=== PATIENT | female | born 1965 | race American Indian/Alaskan Native ===

== ENCOUNTER 2018-04-22 20:43 | Emergency (ER) | payer BC ==
[2018-04-22 20:57] VITALS: BP 154/104
[2018-04-22] MEDS ORDERED: TYLENOL ONE (22:08)
[2018-04-22] MEDS ORDERED: TYLENOL PO ONE (22:11)
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
== END 2018-04-23 00:48 | disposition home or self-care (01) ==
LOC: ED 20:43
DX: M25.551 Pain in right hip (principal); M25.561 Pain in right knee
CPT/HCPCS: 72170; 99283

== ENCOUNTER 2019-05-13 21:08 | Emergency (ER) | payer BC, OTHER ==
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
[2019-05-14] MEDS ORDERED: TORADOL IM ONE (01:58)
[2019-05-14 02:06] VITALS: BP 176/103
== END 2019-05-14 02:07 | disposition home or self-care (01) ==
LOC: ED 21:08
DX: S16.1XXA Strain of muscle, fascia and tendon at neck level, initial encounter (principal); I10 Essential (primary) hypertension; M19.90 Unspecified osteoarthritis, unspecified site; Z90.89 Acquired absence of other organs; Z90.710 Acquired absence of both cervix and uterus; E66.01 Morbid (severe) obesity due to excess calories; V49.49XA Driver injured in collision with other motor vehicles in traffic accident, initial encounter; Y93.9 Activity, unspecified; Y92.410 Unspecified street and highway as the place of occurrence of the external cause; Y99.8 Other external cause status
CPT/HCPCS: 72040; 96372; 99283; J1885

== ENCOUNTER 2019-06-16 19:51 | Emergency (ER) | payer BC, OTHER ==
--- NOTE | 2019-06-16 20:29 | Emergency Department Report ---
Blank Doc - Documentation Documentation: This is a 54-year-old female that present with left elbow pain. This initial assessment/diagnostic orders/clinical plan/treatment(s) is/are subject to change based on patient's health status, clinical progression and re- assessment by fellow clinical providers in the ED. Further treatment and workup at subsequent clinical providers discretion. Patient/guardians urged not to elope from the ED as their condition may be serious if not clinically assessed and managed. Initial orders include: 1- Patient sent to [facility] for further evaluation and treatment 2- xray
[2019-06-16 21:25] VITALS: BP 158/101
--- NOTE | 2019-06-16 21:47 | XRay Report ---
CLINICAL DATA: elbow pain TECHNICAL DATA: 4 views of the elbow were obtained, AP, lateral, obliques FINDINGS: There is no acute fracture or dislocation. There is visualization of the anterior humeral fat pad. Th is is no consistent with a joint effusion. The radial head articulates normally with the capitellum a nd the ulna articulates normally with the trochlea. No obvious fractures identified. IMPRESSION: 1. There is no convincing acute fracture detected at this time. Signer Name: Az Merchant MD Signed: 06/16/2019 9:43 PM Workstation Name: [id number]
--- NOTE | 2019-06-16 21:56 | Emergency Department Report ---
Upper Extremity - HPI Chief Complaint: Extremity Injury, Upper Stated Complaint: LEFT ELBOW PAIN Time Seen by Provider: 06/16/19 20:28 Upper Extremity: Left Elbow Occurred When: Today Mechanism: Other Severity: moderate Symptoms: Yes Pain with Movement, No Deformity, No Limited Range of Movement, No Numbness, No Weakness, No Swelling, No Bruising/Ecchymosis, No Laceration or Abrasion ED Review of Systems ROS: Stated complaint: LEFT ELBOW PAIN Other details as noted in HPI Comment: All other systems reviewed and negative Constitutional: denies: chills, fever Respiratory: denies: cough, shortness of breath Cardiovascular: denies: chest pain ED Past Medical Hx - Past Medical History Previous Medical History?: Yes Hx Hypertension: Yes Hx Arthritis: Yes Additional medical history: morbid obesity - Surgical History Past Surgical History?: Yes Additional Surgical History: Hysterectomy, Tosillectomy, C section x 1 - Social History Smoking Status: Former Smoker - Medications Home Medications: Home Medications Medication Instructions Recorded Confirmed Last Taken Type Cyclobenzaprine [Flexeril 10mg] 10 mg PO Q12H PRN #14 tablet 11/05/18 Unknown Rx Ibuprofen [Motrin] 600 mg PO Q8H PRN #12 tablet 11/05/18 Unknown Rx Cyclobenzaprine [Flexeril] 10 mg PO TID PRN #30 tablet 05/14/19 Unknown Rx Menthol/Camphor [[place] 1 applic TP QID PRN #1 tube 05/14/19 Unknown Rx Ointment] Naproxen [Naprosyn TAB] 500 mg PO BID PRN #30 tablet 05/14/19 Unknown Rx Upper Extremity Exam - Exam General: Vital signs noted. No distress. Alert and acting appropriately. Head and Torso: No HEENT Abnormality, No Neck Tenderness, No Chest/Lungs Abnormality, No Abdominal Tenderness, No Back Tenderness Shoulder Exam: No Shoulder Tenderness, No Clavicle Tenderness, No Normal Range of Motion in Shoulder, No Shoulder Deformity, No AC Joint Tenderness Arm Exam: No Arm/Humerus Tenderness, No Arm Deformity Elbow: Yes Elbow Tenderness, Yes Normal Range of Motion in Elbow, No Elbow Deformity Forearm: No Forearm Tenderness, No Forearm Deformity, No Pain with Pronation, No Pain with Supination ED Course Vital Signs 06/16/19 06/16/19 19:55 21:24 Temperature 97.8 F 97.8 F Pulse Rate 79 83 Respiratory 18 16 Rate Blood Pressure 184/99 Blood Pressure 158/101 [Right] O2 Sat by Pulse 97 98 Oximetry ED Medical Decision Making - Radiology Data Radiology results: report reviewed Left elbow x-ray is unremarkable. Critical care attestation.: If time is entered above; I have spent that time in minutes in the direct care of this critically ill patient, excluding procedure time. ED Disposition Clinical Impression: Olecranon bursitis Disposition: DC- TO HOME OR SELFCARE Is pt being admited?: No Condition: Stable Instructions: Elbow Bursitis (ED) Referrals: [facility] [Provider Group] - 3-5 Days Forms: Work/School Release Form(ED)
== END 2019-06-16 22:23 | disposition home or self-care (01) ==
LOC: ED 19:51
DX: M70.22 Olecranon bursitis, left elbow (principal); I10 Essential (primary) hypertension; M19.90 Unspecified osteoarthritis, unspecified site; E66.01 Morbid (severe) obesity due to excess calories; Z68.42 Body mass index [BMI] 45.0-49.9, adult; Z90.710 Acquired absence of both cervix and uterus; Z90.89 Acquired absence of other organs; Z87.891 Personal history of nicotine dependence; Z79.899 Other long term (current) drug therapy
CPT/HCPCS: 99283

== ENCOUNTER 2019-07-22 20:04 | Emergency (ER) | payer BC ==
--- NOTE | 2019-07-22 20:20 | Event Note ---
ED Screening Note Date of service: 07/22/19 Time: 20:10 ED Screening Note: 54 yo presents to ED cc of knee pain This initial assessment/diagnostic orders/clinical plan/treatment(s) is/are subject to change based on patients health status, clinical progression and re- assessment by fellow clinical providers in the ED. Further treatment and workup at subsequent clinical providers discretion. Patient/guardian urged not to elope from the ED as their condition may be serious if not clinically assessed and managed. Initial orders include:
--- NOTE | 2019-07-22 21:30 | XRay Report ---
LEFT KNEE 3 VIEWS INDICATION / CLINICAL INFORMATION: Left knee pain. COMPARISON: None available. FINDINGS: BONES / JOINT(S): There are moderate tricompartmental degenerative changes, most prominent involving the medial tibiofemoral and patellofemoral joint spaces. There is no evidence of fracture, dislocatio n or destructive lesion. No significant joint effusion is seen. SOFT TISSUES: No significant abnormality. ADDITIONAL FINDINGS: None. IMPRESSION: Moderate osteoarthritis without acute abnormality. Signer Name: Cruzito Tyler MD Signed: 07/22/2019 9:26 PM Workstation Name: [id number]
[2019-07-22] MEDS ORDERED: IBUPROFEN PO ONE (22:13)
--- NOTE | 2019-07-22 22:53 | Emergency Department Report ---
ED Back Pain/Injury HPI - General Chief Complaint: Extremity Injury, Lower Stated Complaint: LEFT KNEE PAIN/SWOLLEN Time Seen by Provider: 07/22/19 20:10 Source: patient Limitations: No Limitations - History of Present Illness Initial Comments: 54 YO WITH A/C L KNEE PAIN. NO TRAUMA. MORBIDLY OBESE. - Related Data Previous Rx's Medication Instructions Recorded Last Taken Type Cyclobenzaprine [Flexeril 10mg] 10 mg PO Q12H PRN #14 tablet 11/05/18 Unknown Rx Ibuprofen [Motrin] 600 mg PO Q8H PRN #12 tablet 11/05/18 Unknown Rx Cyclobenzaprine [Flexeril] 10 mg PO TID PRN #30 tablet 05/14/19 Unknown Rx Menthol/Camphor [[place] 1 applic TP QID PRN #1 tube 05/14/19 Unknown Rx Ointment] Naproxen [Naprosyn TAB] 500 mg PO BID PRN #30 tablet 05/14/19 Unknown Rx Naproxen [Naprosyn] 500 mg PO BID #14 tablet 06/16/19 Unknown Rx Allergies Allergy/AdvReac Type Severity Reaction Status Date / Time No Known Allergies Allergy Verified 04/22/18 23:18 ED Review of Systems ROS: Stated complaint: LEFT KNEE PAIN/SWOLLEN Other details as noted in HPI Comment: All other systems reviewed and negative ED Past Medical Hx - Past Medical History morbid obesity- HYPOTHYROIDISM Family history: hypertension ED Back Pain Physical Exam - Exam General: Vital signs noted. No distress. Alert and acting appropriately. Back/Abdomen: No Abdominal Tenderness, No Perithoracic Tenderness, No Perilumbar Tenderness, No Sacroiliac Tenderness, No Flank Tenderness, No Straight Leg Raise Pain Neuro: Yes Normal Sensation, Yes Normal DTR's, Yes Normal Gait, No Motor Weakness ED Course Vital Signs 07/22/19 07/22/19 20:13 22:19 Temperature 98.3 F Pulse Rate 74 Respiratory 18 16 Rate Blood Pressure 137/86 O2 Sat by Pulse 96 Oximetry Ed Back Pain Tests - Tests Tests: Normal X Rays ED Medical Decision Making - Radiology Data Radiology results: report reviewed, image reviewed - Medical Decision Making XRAY NEG A/C PAIN NO HOME MEDS AMBULATING WO DIFFICULTY N/V INTACT DC HOME WITH DC PLAN OF CARE Vital Signs 07/22/19 07/22/19 20:13 22:19 Temperature 98.3 F Pulse Rate 74 Respiratory 18 16 Rate Blood Pressure 137/86 O2 Sat by Pulse 96 Oximetry - Differential Diagnosis RO FX Critical care attestation.: If time is entered above; I have spent that time in minutes in the direct care of this critically ill patient, excluding procedure time. ED Disposition Clinical Impression: Knee pain Disposition: DC-01 TO HOME OR SELFCARE Is pt being admited?: No Does the pt Need Aspirin: No Condition: Stable Instructions: Arthralgia (ED) Referrals: GITA GIANG MD [Staff Physician] - 3-5 Days [facility] [Outside] - 3-5 Days [facility] [Outside] - 3-5 Days Forms: Work/School Release Form(ED) Time of Disposition: 22:53
[2019-07-22 23:12] VITALS: BP 134/81
== END 2019-07-22 23:11 | disposition home or self-care (01) ==
LOC: ED 20:04
DX: M25.562 Pain in left knee (principal); E03.9 Hypothyroidism, unspecified; E66.01 Morbid (severe) obesity due to excess calories; Z68.42 Body mass index [BMI] 45.0-49.9, adult; Z79.899 Other long term (current) drug therapy

== ENCOUNTER 2019-12-29 22:45 | Emergency (ER) | payer BC, OTHER ==
--- NOTE | 2019-12-30 02:40 | XRay Report ---
CHEST 2 VIEWS INDICATION: cough. COMPARISON: None FINDINGS: Support devices: None. Heart: Within normal limits. Lungs/pleura: No acute air space or interstitial disease. No pneumothorax. Additional findings: None. IMPRESSION: 1. No acute findings. Signer Name: Og Strickland MD Signed: 12/30/2019 2:35 AM Workstation Name: [id number]
--- NOTE | 2019-12-30 03:11 | Emergency Department Report ---
- General Chief Complaint: Upper Respiratory Infection Stated Complaint: FLU SYM Time Seen by Provider: 12/30/19 02:08 Source: patient Mode of arrival: Ambulatory Limitations: No Limitations - History of Present Illness Initial Comments: 54-year-old -[place] female with history of asthma presents with complaints of cough, runny nose, sneezing, and sore throat x 1 week. She reports a tactile fever and chills. She denies any smoking, chest pain, shortness of breath, nausea/vomiting/diarrhea, or body aches. She rates her throat pain as a 3/10 in severity and describes it as scratchy. Patient states TheraFlu is not helping with her symptoms. She also reports 1 episode of dizziness that occurred after she awoke from a nap and lasted a few seconds. She denies any syncope, headache, facial pain or pressure, vision changes, or numbness/tingling/weakness. Blood pressure noted to be significantly elevated at 183/103, patient denies any previous history of hypertension MD Complaint: fever, cough, sore throat, rhinorrhea, nasal congestion - Related Data Previous Rx's Medication Instructions Recorded Last Taken Type Cyclobenzaprine [Flexeril 10mg] 10 mg PO Q12H PRN #14 tablet 11/05/18 Unknown Rx Ibuprofen [Motrin] 600 mg PO Q8H PRN #12 tablet 11/05/18 Unknown Rx Cyclobenzaprine [Flexeril] 10 mg PO TID PRN #30 tablet 05/14/19 Unknown Rx Menthol/Camphor [[place] 1 applic TP QID PRN #1 tube 05/14/19 Unknown Rx Ointment] Naproxen [Naprosyn TAB] 500 mg PO BID PRN #30 tablet 05/14/19 Unknown Rx Naproxen [Naprosyn] 500 mg PO BID #14 tablet 06/16/19 Unknown Rx Benzonatate 200 mg PO TID PRN #30 capsule 12/30/19 Unknown Rx Fluticasone [Flonase] 1 spray NS BID PRN #1 bottle 12/30/19 Unknown Rx Levocetirizine Dihydrochloride 5 mg PO QHS #15 tablet 12/30/19 Unknown Rx [Xyzal] Allergies Allergy/AdvReac Type Severity Reaction Status Date / Time No Known Allergies Allergy Verified 04/22/18 23:18 ED Review of Systems ROS: Stated complaint: FLU SYM Other details as noted in HPI Constitutional: chills, fever. denies: malaise, weakness Eyes: denies: vision change ENT: throat pain. denies: ear pain, dental pain Respiratory: cough. denies: shortness of breath Cardiovascular: denies: chest pain, syncope Gastrointestinal: denies: abdominal pain, nausea, vomiting, diarrhea Skin: denies: rash, lesions Neurological: denies: headache, numbness, paresthesias, confusion, abnormal gait Hematological/Lymphatic: denies: swollen glands ED Past Medical Hx - Past Medical History Previous Medical History?: Yes Hx Hypertension: Yes Hx Arthritis: Yes Additional medical history: morbid obesity- HYPOTHYROIDISM - Surgical History Past Surgical History?: Yes Additional Surgical History: Hysterectomy, Tosillectomy, C section x 1 - Social History Smoking Status: Never Smoker Substance Use Type: Alcohol - Medications Home Medications: Home Medications Medication Instructions Recorded Confirmed Last Taken Type Cyclobenzaprine [Flexeril 10mg] 10 mg PO Q12H PRN #14 tablet 11/05/18 Unknown Rx Ibuprofen [Motrin] 600 mg PO Q8H PRN #12 tablet 11/05/18 Unknown Rx Cyclobenzaprine [Flexeril] 10 mg PO TID PRN #30 tablet 05/14/19 Unknown Rx Menthol/Camphor [[place] 1 applic TP QID PRN #1 tube 05/14/19 Unknown Rx Ointment] Naproxen [Naprosyn TAB] 500 mg PO BID PRN #30 tablet 05/14/19 Unknown Rx Naproxen [Naprosyn] 500 mg PO BID #14 tablet 06/16/19 Unknown Rx Benzonatate 200 mg PO TID PRN #30 capsule 12/30/19 Unknown Rx Fluticasone [Flonase] 1 spray NS BID PRN #1 bottle 12/30/19 Unknown Rx Levocetirizine Dihydrochloride 5 mg PO QHS #15 tablet 12/30/19 Unknown Rx [Xyzal] ED Physical Exam - General Limitations: No Limitations General appearance: alert, in no apparent distress, obese - Head Head exam: Present: atraumatic, normocephalic - Eye Eye exam: Present: normal appearance. Absent: scleral icterus, conjunctival injection - ENT ENT exam: Present: normal orophraynx, mucous membranes moist, other (swollen, bluish turbinates noted on nasal exam) - Neck Neck exam: Present: normal inspection, full ROM. Absent: tenderness, lymphadenopathy - Respiratory Respiratory exam: Present: normal lung sounds bilaterally. Absent: respiratory distress, wheezes, rales, rhonchi - Cardiovascular Cardiovascular Exam: Present: regular rate, normal rhythm. Absent: systolic murmur, diastolic murmur, rubs, gallop - Extremities Exam Extremities exam: Present: normal inspection - Back Exam Back exam: Present: normal inspection - Neurological Exam Neurological exam: Present: alert, oriented X3 - Psychiatric Psychiatric exam: Present: normal affect, normal mood - Skin Skin exam: Present: warm, dry, intact, normal color. Absent: rash ED Course Vital Signs 12/29/19 12/29/19 22:51 23:33 Temperature 98.3 F Pulse Rate 81 Respiratory 18 Rate Blood Pressure 183/103 O2 Sat by Pulse 97 Oximetry ED Medical Decision Making - Medical Decision Making 54-year-old -[place] female with history of asthma presents with complaints of cough, runny nose, sneezing, and sore throat x 1 week. Chest x- ray is negative for acute findings. Physical exam is consistent with allergic rhinosinusitis. Chest x-ray is negative for acute findings. Heart rate and temperature are normal. Patient is nontoxic-appearing in stable for discharge home. Recommend follow-up with primary care provider within 2 days for reevaluation of blood pressure. Discussed very strict return precautions in great detail with patient who verbalizes understanding. Critical care attestation.: If time is entered above; I have spent that time in minutes in the direct care of this critically ill patient, excluding procedure time. ED Disposition Clinical Impression: Allergic rhinosinusitis Qualifiers: Allergic rhinitis trigger: other Allergic rhinitis seasonality: seasonal Qualified Code(s): J30.89 - Other allergic rhinitis Disposition: - TO HOME OR SELFCARE Is pt being admited?: No Condition: Stable Instructions: Allergies (ED) Prescriptions: Levocetirizine Dihydrochloride [Xyzal] 5 mg PO QHS #15 tablet Benzonatate 200 mg PO TID PRN #30 capsule PRN Reason: Cough Fluticasone [Flonase] 1 spray NS BID PRN #1 bottle PRN Reason: Congestion Referrals: JING SCHWARTZ MD [Staff Physician] - 3-5 Days Forms: Work/School Release Form(ED)
[2019-12-30 03:37] VITALS: BP 147/58
== END 2019-12-30 03:36 | disposition home or self-care (01) ==
LOC: ED 22:45
DX: J30.9 Allergic rhinitis, unspecified (principal); I10 Essential (primary) hypertension; M19.90 Unspecified osteoarthritis, unspecified site; E03.9 Hypothyroidism, unspecified; Z90.710 Acquired absence of both cervix and uterus; Z98.890 Other specified postprocedural states; Z79.1 Long term (current) use of non-steroidal anti-inflammatories (NSAID); Z79.899 Other long term (current) drug therapy
CPT/HCPCS: 71046

== ENCOUNTER 2020-07-19 02:09 | Emergency (ER) | payer BC ==
[2020-07-19 02:44] VITALS: BP 173/92
--- NOTE | 2020-07-19 05:08 | Emergency Department Report ---
ED Extremity Problem HPI - General Chief complaint: Extremity Injury, Lower Stated complaint: LF KNEE PAIN Time Seen by Provider: 07/19/20 05:03 Source: patient Mode of arrival: Ambulatory Limitations: No Limitations - History of Present Illness Initial comments: 55-year-old morbid obese -[place] female presents to the emergency room complaining of chronic right knee pain. Patient states that she has acute pain that started since Sunday. Patient denies any recent injury. Patient reports that she is waiting for an appointment next month to have a gel injection to her knee. Patient reports has been taking Advil without much relief. Patient denies any known drug allergies. Past medical history of arthritis hypertension morbid obesity hypothyroidism. MD Complaint: extremity pain, extremity swelling Onset/Timin -: days(s) Location: left, knee History of Same: Yes -: Yes arthralgia Severity scale (0 -10): 9 Quality: stabbing, sharp Consistency: intermittent Improves with: rest Worsens with: weight bearing, walking Associated Symptoms: denies other symptoms - Related Data Previous Rx's Medication Instructions Recorded Last Taken Type Cyclobenzaprine [Flexeril 10mg] 10 mg PO Q12H PRN #14 tablet 11/05/18 Unknown Rx Ibuprofen [Motrin] 600 mg PO Q8H PRN #12 tablet 11/05/18 Unknown Rx Cyclobenzaprine [Flexeril] 10 mg PO TID PRN #30 tablet 05/14/19 Unknown Rx Menthol/Camphor [[place] 1 applic TP QID PRN #1 tube 05/14/19 Unknown Rx Ointment] Naproxen [Naprosyn] 500 mg PO BID #14 tablet 06/16/19 Unknown Rx Benzonatate 200 mg PO TID PRN #30 capsule 12/30/19 Unknown Rx Fluticasone [Flonase] 1 spray NS BID PRN #1 bottle 12/30/19 Unknown Rx Levocetirizine Dihydrochloride 5 mg PO QHS #15 tablet 12/30/19 Unknown Rx [Xyzal] Naproxen [Naprosyn TAB] 500 mg PO BID PRN #30 tablet 05/03/20 Unknown Rx predniSONE [Deltasone] 60 mg PO QDAY #15 tab 05/03/20 Unknown Rx tiZANidine [Zanaflex 4mg TAB] 4 mg PO Q8H PRN #21 tablet 05/03/20 Unknown Rx Lidocaine [Lidoderm] 1 each TP Q12H #1 box 07/19/20 Unknown Rx Meloxicam [Mobic] 7.5 mg PO QDAY #30 tablet 07/19/20 Unknown Rx traMADoL [Ultram 50 MG tab] 50 mg PO Q6HR PRN #12 tablet 07/19/20 Unknown Rx Allergies Allergy/AdvReac Type Severity Reaction Status Date / Time No Known Allergies Allergy Verified 04/22/18 23:18 ED Review of Systems ROS: Stated complaint: LF KNEE PAIN Other details as noted in HPI Comment: All other systems reviewed and negative ED Past Medical Hx - Past Medical History Previous Medical History?: Yes Hx Hypertension: Yes Hx Arthritis: Yes Additional medical history: morbid obesity- HYPOTHYROIDISM. Chronic Knee Pain - Surgical History Past Surgical History?: Yes Additional Surgical History: Hysterectomy, Tosillectomy, C section x 1. thyroid - Social History Smoking Status: Never Smoker Substance Use Type: None - Medications Home Medications: Home Medications Medication Instructions Recorded Confirmed Last Taken Type Cyclobenzaprine [Flexeril 10mg] 10 mg PO Q12H PRN #14 tablet 11/05/18 Unknown Rx Ibuprofen [Motrin] 600 mg PO Q8H PRN #12 tablet 11/05/18 Unknown Rx Cyclobenzaprine [Flexeril] 10 mg PO TID PRN #30 tablet 05/14/19 Unknown Rx Menthol/Camphor [[place] 1 applic TP QID PRN #1 tube 05/14/19 Unknown Rx Ointment] Naproxen [Naprosyn] 500 mg PO BID #14 tablet 06/16/19 Unknown Rx Benzonatate 200 mg PO TID PRN #30 capsule 12/30/19 Unknown Rx Fluticasone [Flonase] 1 spray NS BID PRN #1 bottle 12/30/19 Unknown Rx Levocetirizine Dihydrochloride 5 mg PO QHS #15 tablet 12/30/19 Unknown Rx [Xyzal] Naproxen [Naprosyn TAB] 500 mg PO BID PRN #30 tablet 05/03/20 Unknown Rx predniSONE [Deltasone] 60 mg PO QDAY #15 tab 05/03/20 Unknown Rx tiZANidine [Zanaflex 4mg TAB] 4 mg PO Q8H PRN #21 tablet 05/03/20 Unknown Rx Lidocaine [Lidoderm] 1 each TP Q12H #1 box 07/19/20 Unknown Rx Meloxicam [Mobic] 7.5 mg PO QDAY #30 tablet 07/19/20 Unknown Rx traMADoL [Ultram 50 MG tab] 50 mg PO Q6HR PRN #12 tablet 07/19/20 Unknown Rx ED Physical Exam - General Limitations: No Limitations General appearance: alert, obese - Head Head exam: Present: atraumatic, normocephalic - Eye Eye exam: Present: normal appearance - ENT ENT exam: Present: mucous membranes moist - Expanded Lower Extremity Exam Left Knee exam: Present: full ROM, tenderness, swelling, crepidus. Absent: abrasion, laceration, ecchymosis, deformity Lower Leg exam: Present: normal inspection, full ROM. Absent: tenderness, swell ing - Neurological Exam Neurological exam: Present: alert, oriented X3 - Psychiatric Psychiatric exam: Present: normal affect, normal mood - Skin Skin exam: Present: warm, dry, intact, normal color. Absent: rash ED Course Vital Signs 07/19/20 02:32 Temperature 98.6 F Pulse Rate 79 Respiratory 18 Rate Blood Pressure 173/92 O2 Sat by Pulse 95 Oximetry ED Medical Decision Making - Medical Decision Making 55-year-old morbid obese -[place] female presents to the emergency room complaining of chronic right knee pain. Patient states that she has acute pain that started since Sunday. Patient denies any recent injury. Patient reports that she is waiting for an appointment next month to have a gel injection to her knee. Patient reports has been taking Advil without much relief. Patient denies any known drug allergies. Past medical history of arthritis hypertension morbid obesity hypothyroidism. Discussed with patient I will refill tramadol and place her on Lidoderm patches. Instructed patient she needs to follow-up with her orthopedic provider for further evaluation and treatment. Critical care attestation.: If time is entered above; I have spent that time in minutes in the direct care of this critically ill patient, excluding procedure time. ED Disposition Clinical Impression: Knee pain, left, Arthritis of both knees Disposition: TO HOME OR SELFCARE Is pt being admited?: No Does the pt Need Aspirin: No Condition: Stable Instructions: Arthralgia (ED) Additional Instructions: Take pain medication as prescribed. Is sure to use the Lidoderm patches for 12 hours and then off for 12 hours. I recommend a neoprene knee sleeve as this will help with support. Follow-up with your orthopedic provider. Do not operate heavy machinery while taking tramadol. Prescriptions: Lidocaine [Lidoderm] 1 each TP Q12H #1 box Meloxicam [Mobic] 7.5 mg PO QDAY #30 tablet traMADoL [Ultram 50 MG tab] 50 mg PO Q6HR PRN #12 tablet PRN Reason: Pain Referrals: PRIMARY CARE,MD [Primary Care Provider] - 3-5 Days Your, orthopedic provider [Other] - 3-5 Days Forms: Work/School Release Form(ED)
== END 2020-07-19 05:33 | disposition home or self-care (01) ==
LOC: ED 02:09
DX: M13.862 Other specified arthritis, left knee (principal); M13.861 Other specified arthritis, right knee; I10 Essential (primary) hypertension; Z79.899 Other long term (current) drug therapy; G89.29 Other chronic pain; Z90.710 Acquired absence of both cervix and uterus; Z90.89 Acquired absence of other organs; E66.01 Morbid (severe) obesity due to excess calories
CPT/HCPCS: 99282

== ENCOUNTER 2020-09-29 23:48 | Emergency (ER) | payer BC ==
[2020-09-30 00:04] VITALS: BP 161/96
[2020-09-30] MEDS ORDERED: oxyCODONE /ACETAMINOPHEN 5-325MG TAB PO ONE (01:16)
--- NOTE | 2020-09-30 01:17 | XRay Report ---
Left knee 2 views INDICATION: Left knee pain. IMPRESSION: Severe tricompartmental degenerative changes of the left knee. Signer Name: Tomi Guzman MD Signed: 09/30/2020 1:13 AM Workstation Name: [id number]
--- NOTE | 2020-09-30 01:21 | Emergency Department Report ---
ED General Adult HPI - General Chief complaint: Extremity Injury, Lower Stated complaint: LEFT KNEE PAIN Time Seen by Provider: 09/30/20 01:16 Source: patient Mode of arrival: Ambulatory Limitations: No Limitations - History of Present Illness Initial comments: 55-year-old female presenting with chief complaint of left knee pain, this is a chronic and recurrent issue she is recently completed injections but now it hurts again. She states that it began about 4 days ago gradually and has gotten worse, she is able to ambulate though it does cause the pain to worsen it is better when she is at rest. No fevers or other associated symptoms. - Related Data Previous Rx's Medication Instructions Recorded Last Taken Type Cyclobenzaprine [Flexeril 10mg] 10 mg PO Q12H PRN #14 tablet 11/05/18 Unknown Rx Ibuprofen [Motrin] 600 mg PO Q8H PRN #12 tablet 11/05/18 Unknown Rx Cyclobenzaprine [Flexeril] 10 mg PO TID PRN #30 tablet 05/14/19 Unknown Rx Menthol/Camphor [[place] 1 applic TP QID PRN #1 tube 05/14/19 Unknown Rx Ointment] Benzonatate 200 mg PO TID PRN #30 capsule 12/30/19 Unknown Rx Fluticasone [Flonase] 1 spray NS BID PRN #1 bottle 12/30/19 Unknown Rx Levocetirizine Dihydrochloride 5 mg PO QHS #15 tablet 12/30/19 Unknown Rx [Xyzal] Naproxen [Naprosyn TAB] 500 mg PO BID PRN #30 tablet 05/03/20 Unknown Rx tiZANidine [Zanaflex 4mg TAB] 4 mg PO Q8H PRN #21 tablet 05/03/20 Unknown Rx Lidocaine [Lidoderm] 1 each TP Q12H #1 box 07/19/20 Unknown Rx Meloxicam [Mobic] 7.5 mg PO QDAY #30 tablet 07/19/20 Unknown Rx traMADoL [Ultram 50 MG tab] 50 mg PO Q6HR PRN #12 tablet 07/19/20 Unknown Rx Naproxen [Naprosyn TAB] 500 mg PO BID #20 tablet 09/30/20 Unknown Rx predniSONE [Deltasone] 40 mg PO QDAY #10 tab 09/30/20 Unknown Rx Allergies Allergy/AdvReac Type Severity Reaction Status Date / Time No Known Allergies Allergy Verified 04/22/18 23:18 ED Review of Systems ROS: Stated complaint: LEFT KNEE PAIN Other details as noted in HPI Comment: All other systems reviewed and negative Musculoskeletal: as per HPI ED Past Medical Hx - Past Medical History Hx Hypertension: Yes Hx Arthritis: Yes Additional medical history: morbid obesity- HYPOTHYROIDISM. Chronic Knee Pain - Surgical History Additional Surgical History: Hysterectomy, Tosillectomy, C section x 1. thyroid - Social History Smoking Status: Never Smoker Substance Use Type: None - Medications Home Medications: Home Medications Medication Instructions Recorded Confirmed Last Taken Type Cyclobenzaprine [Flexeril 10mg] 10 mg PO Q12H PRN #14 tablet 11/05/18 Unknown Rx Ibuprofen [Motrin] 600 mg PO Q8H PRN #12 tablet 11/05/18 Unknown Rx Cyclobenzaprine [Flexeril] 10 mg PO TID PRN #30 tablet 05/14/19 Unknown Rx Menthol/Camphor [[place] 1 applic TP QID PRN #1 tube 05/14/19 Unknown Rx Ointment] Benzonatate 200 mg PO TID PRN #30 capsule 12/30/19 Unknown Rx Fluticasone [Flonase] 1 spray NS BID PRN #1 bottle 12/30/19 Unknown Rx Levocetirizine Dihydrochloride 5 mg PO QHS #15 tablet 12/30/19 Unknown Rx [Xyzal] Naproxen [Naprosyn TAB] 500 mg PO BID PRN #30 tablet 05/03/20 Unknown Rx tiZANidine [Zanaflex 4mg TAB] 4 mg PO Q8H PRN #21 tablet 05/03/20 Unknown Rx Lidocaine [Lidoderm] 1 each TP Q12H #1 box 07/19/20 Unknown Rx Meloxicam [Mobic] 7.5 mg PO QDAY #30 tablet 07/19/20 Unknown Rx traMADoL [Ultram 50 MG tab] 50 mg PO Q6HR PRN #12 tablet 07/19/20 Unknown Rx Naproxen [Naprosyn TAB] 500 mg PO BID #20 tablet 09/30/20 Unknown Rx predniSONE [Deltasone] 40 mg PO QDAY #10 tab 09/30/20 Unknown Rx ED Physical Exam - General Limitations: No Limitations General appearance: alert, in no apparent distress - Head Head exam: Present: atraumatic, normocephalic - Eye Eye exam: Present: normal appearance, PERRL - ENT ENT exam: Present: normal exam, normal orophraynx - Neck Neck exam: Present: normal inspection, full ROM - Extremities Exam Extremities exam: Present: other (There is a mild swelling to the left knee with some painful range of motion, remainder of lower extremity is normal including a normal pedal pulse) - Neurological Exam Neurological exam: Present: alert, oriented X3 - Psychiatric Psychiatric exam: Present: normal affect, normal mood - Skin Skin exam: Present: warm, dry, intact ED Course Vital Signs 09/30/20 00:00 Temperature 97.9 F Pulse Rate 94 H Respiratory 20 Rate Blood Pressure 161/96 O2 Sat by Pulse 98 Oximetry ED Medical Decision Making - Radiology Data Radiology results: image reviewed interpreted by me: Degenerative changes - Medical Decision Making Patient presenting with acute on chronic knee pain. Same as she has been here for multiple times per patient. Requesting a work note. We will give Percocet for pain here and discharged on NSAID and prednisone for a few days. Follow-up Ortho. - Differential Diagnosis Osteoarthritis, sprain, unlikely fracture Critical care attestation.: If time is entered above; I have spent that time in minutes in the direct care of this critically ill patient, excluding procedure time. ED Disposition Clinical Impression: Chronic knee pain Qualifiers: Laterality: left Qualified Code(s): M25.562 - Pain in left knee; G89.29 - Other chronic pain Disposition: - TO HOME OR SELFCARE Is pt being admited?: No Condition: Good Instructions: Acute Knee Pain, Adult Prescriptions: predniSONE [Deltasone] 40 mg PO QDAY #10 tab Naproxen [Naprosyn TAB] 500 mg PO BID #20 tablet Referrals: GITA GIANG MD [Staff Physician] - 3-5 Days Time of Disposition: 01:
== END 2020-09-30 01:45 | disposition home or self-care (01) ==
LOC: ED 23:48
DX: G89.29 Other chronic pain (principal); M25.562 Pain in left knee; I10 Essential (primary) hypertension; M19.91 Primary osteoarthritis, unspecified site; Z90.710 Acquired absence of both cervix and uterus; Z90.89 Acquired absence of other organs; Z98.890 Other specified postprocedural states; Z79.1 Long term (current) use of non-steroidal anti-inflammatories (NSAID); Z79.899 Other long term (current) drug therapy

== ENCOUNTER 2020-10-11 23:46 | Emergency (ER) | payer BC ==
[2020-10-12 00:16] VITALS: BP 147/89
--- NOTE | 2020-10-12 08:53 | Emergency Department Report ---
ED Lower Extremity HPI - General Chief Complaint: Extremity Problem,Nontraumatic Stated Complaint: LEFT KNEE PAIN Time Seen by Provider: 10/12/20 08:43 Source: patient Mode of arrival: Ambulatory Limitations: Physical Limitation - History of Present Illness Initial Comments: This very pleasant 55-year-old female presents the emergency department chief c omplaint of left knee pain. Patient reports she was walking down a step and missed a step landed approximately 2 inches further with her left leg causing severe left knee pain. She denies any injuries. She did not fall on the knee. She reports pain to the medial side of the knee that she rates as a 6 out of 10 is aggravated with movement. She has a history of osteoarthritis in this knee and has had multiple injections by orthopedics in the past. She denies any associated fever, chills, night sweats, headache, dizziness, blurry vision, nausea vomiting, diarrhea, chest pain, shortness of breath or any other associated symptoms. - Related Data Previous Rx's Medication Instructions Recorded Last Taken Type Cyclobenzaprine [Flexeril 10mg] 10 mg PO Q12H PRN #14 tablet 11/05/18 Unknown Rx Ibuprofen [Motrin] 600 mg PO Q8H PRN #12 tablet 11/05/18 Unknown Rx Cyclobenzaprine [Flexeril] 10 mg PO TID PRN #30 tablet 05/14/19 Unknown Rx Menthol/Camphor [[place] 1 applic TP QID PRN #1 tube 05/14/19 Unknown Rx Ointment] Benzonatate 200 mg PO TID PRN #30 capsule 12/30/19 Unknown Rx Fluticasone [Flonase] 1 spray NS BID PRN #1 bottle 12/30/19 Unknown Rx Levocetirizine Dihydrochloride 5 mg PO QHS #15 tablet 12/30/19 Unknown Rx [Xyzal] tiZANidine [Zanaflex 4mg TAB] 4 mg PO Q8H PRN #21 tablet 05/03/20 Unknown Rx Lidocaine [Lidoderm] 1 each TP Q12H #1 box 07/19/20 Unknown Rx Meloxicam [Mobic] 7.5 mg PO QDAY #30 tablet 07/19/20 Unknown Rx traMADoL [Ultram 50 MG tab] 50 mg PO Q6HR PRN #12 tablet 07/19/20 Unknown Rx Naproxen [Naprosyn TAB] 500 mg PO BID #20 tablet 09/30/20 Unknown Rx predniSONE [Deltasone] 40 mg PO QDAY #10 tab 09/30/20 Unknown Rx Lidocaine [Lidoderm] 1 each TP TID #20 adh..patch 10/12/20 Unknown Rx Naproxen [Naprosyn TAB] 500 mg PO BID PRN #30 tablet 10/12/20 Unknown Rx Tizanidine HCl [Zanaflex 2mg CAP] 2 mg PO TID #12 capsule 10/12/20 Unknown Rx methylPREDNISolone [Medrol 4MG 4 mg PO ONCE #1 tab.ds.pk 10/12/20 Unknown Rx DOSEPAK (21 tabs)] Allergies Allergy/AdvReac Type Severity Reaction Status Date / Time No Known Allergies Allergy Verified 04/22/18 23:18 ED Review of Systems ROS: Stated complaint: LEFT KNEE PAIN Other details as noted in HPI Comment: All other systems reviewed and negative Constitutional: denies: chills, fever Eyes: denies: eye pain, eye discharge, vision change ENT: denies: ear pain, throat pain Respiratory: denies: cough, shortness of breath, wheezing Cardiovascular: denies: chest pain, palpitations Endocrine: no symptoms reported Gastrointestinal: denies: abdominal pain, nausea, diarrhea Genitourinary: denies: urgency, dysuria, discharge Musculoskeletal: as per HPI, arthralgia. denies: back pain, joint swelling Skin: denies: rash, lesions Neurological: denies: headache, weakness, paresthesias Psychiatric: denies: anxiety, depression Hematological/Lymphatic: denies: easy bleeding, easy bruising ED Past Medical Hx - Past Medical History Previous Medical History?: Yes Hx Hypertension: Yes Hx Arthritis: Yes Additional medical history: morbid obesity- HYPOTHYROIDISM. Chronic Knee Pain - Surgical History Past Surgical History?: Yes Additional Surgical History: Hysterectomy, Tosillectomy, C section x 1. thyroid - Social History Smoking Status: Former Smoker Substance Use Type: None - Medications Home Medications: Home Medications Medication Instructions Recorded Confirmed Last Taken Type Cyclobenzaprine [Flexeril 10mg] 10 mg PO Q12H PRN #14 tablet 11/05/18 Unknown Rx Ibuprofen [Motrin] 600 mg PO Q8H PRN #12 tablet 11/05/18 Unknown Rx Cyclobenzaprine [Flexeril] 10 mg PO TID PRN #30 tablet 05/14/19 Unknown Rx Menthol/Camphor [[place] 1 applic TP QID PRN #1 tube 05/14/19 Unknown Rx Ointment] Benzonatate 200 mg PO TID PRN #30 capsule 12/30/19 Unknown Rx Fluticasone [Flonase] 1 spray NS BID PRN #1 bottle 12/30/19 Unknown Rx Levocetirizine Dihydrochloride 5 mg PO QHS #15 tablet 12/30/19 Unknown Rx [Xyzal] tiZANidine [Zanaflex 4mg TAB] 4 mg PO Q8H PRN #21 tablet 05/03/20 Unknown Rx Lidocaine [Lidoderm] 1 each TP Q12H #1 box 07/19/20 Unknown Rx Meloxicam [Mobic] 7.5 mg PO QDAY #30 tablet 07/19/20 Unknown Rx traMADoL [Ultram 50 MG tab] 50 mg PO Q6HR PRN #12 tablet 07/19/20 Unknown Rx Naproxen [Naprosyn TAB] 500 mg PO BID #20 tablet 09/30/20 Unknown Rx predniSONE [Deltasone] 40 mg PO QDAY #10 tab 09/30/20 Unknown Rx Lidocaine [Lidoderm] 1 each TP TID #20 adh..patch 10/12/20 Unknown Rx Naproxen [Naprosyn TAB] 500 mg PO BID PRN #30 tablet 10/12/20 Unknown Rx Tizanidine HCl [Zanaflex 2mg CAP] 2 mg PO TID #12 capsule 10/12/20 Unknown Rx methylPREDNISolone [Medrol 4MG 4 mg PO ONCE #1 tab.ds.pk 10/12/20 Unknown Rx DOSEPAK (21 tabs)] ED Physical Exam - General Limitations: Physical Limitation General appearance: alert, in no apparent distress - Head Head exam: Present: atraumatic, normocephalic - Eye Eye exam: Present: normal appearance, PERRL, EOMI Pupils: Present: normal accommodation - ENT ENT exam: Present: normal exam, normal orophraynx, mucous membranes moist. Absent: mucous membranes dry - Neck Neck exam: Present: normal inspection, full ROM. Absent: tenderness, meningismus, lymphadenopathy - Respiratory Respiratory exam: Present: normal lung sounds bilaterally. Absent: respiratory distress, wheezes, rales, rhonchi, stridor - Cardiovascular Cardiovascular Exam: Present: regular rate, normal rhythm, normal heart sounds. Absent: systolic murmur, diastolic murmur, rubs, gallop - GI/Abdominal GI/Abdominal exam: Present: soft, normal bowel sounds. Absent: distended, tenderness, guarding, rebound, rigid - Extremities Exam Extremities exam: Present: normal inspection, full ROM, tenderness (Mild tenderness to the medial side of the left knee, negative varus and valgus strain, negative anterior and posterior drawer sign, no posterior calf tenderness, normal DP PT pulses, normal distal sensation capillary refill, pain with Kiya's sign), normal capillary refill. Absent: calf tenderness - Back Exam Back exam: Present: normal inspection, full ROM. Absent: tenderness, CVA tenderness (R), CVA tenderness (L) - Neurological Exam Neurological exam: Present: alert, oriented X3 - Psychiatric Psychiatric exam: Present: normal affect, normal mood - Skin Skin exam: Present: warm, dry, intact, normal color. Absent: rash ED Course Vital Signs 10/12/20 00:08 Temperature 97.8 F Pulse Rate 95 H Respiratory 16 Rate Blood Pressure 147/89 O2 Sat by Pulse 93 Oximetry ED Lower Extremity MDM - Medical Decision Making Patient is ambulatory with a steady gait. Ewiiaapaayp knee criteria is negative no imaging is needed at this time. The patient symptoms are consistent with a meniscal injury versus osteoarthritis. We will send the patient home with short course of steroids, muscle relaxers and anti-inflammatories recommended rest, ice, elevation and orthopedics follow-up. She was instructed to return the emerge part any change or worsening symptoms. She verbalized understand the diagnosis, treatment plan and follow-up instructions and all of her questions were answered. - Differential Diagnosis Strain, sprain, fracture Critical care attestation.: If time is entered above; I have spent that time in minutes in the direct care of this critically ill patient, excluding procedure time. ED Disposition Clinical Impression: Left knee sprain Qualifiers: Encounter type: initial encounter Involved ligament of knee: unspecified ligament Qualified Code(s): S83.92XA - Sprain of unspecified site of left knee, initial encounter Disposition: TO HOME OR SELFCARE Is pt being admited?: No Condition: Stable Instructions: Knee Sprain, Adult, [id number] Prescriptions: Lidocaine [Lidoderm] 1 each TP TID #20 adh..patch methylPREDNISolone [Medrol 4MG DOSEPAK (21 tabs)] 4 mg PO ONCE #1 tab.ds.pk Naproxen [Naprosyn TAB] 500 mg PO BID PRN #30 tablet PRN Reason: pain Tizanidine HCl [Zanaflex 2mg CAP] 2 mg PO TID #12 capsule Referrals: PRIMARY CARE, [Primary Care Provider] - 3-5 Days YAAKOV BO MD [Referring] - 3-5 Days
== END 2020-10-12 09:05 | disposition home or self-care (01) ==
LOC: ED 23:46
DX: S83.92XA Sprain of unspecified site of left knee, initial encounter (principal); I10 Essential (primary) hypertension; M19.91 Primary osteoarthritis, unspecified site; Z90.710 Acquired absence of both cervix and uterus; Z90.89 Acquired absence of other organs; Z98.890 Other specified postprocedural states; Z87.891 Personal history of nicotine dependence; Z79.1 Long term (current) use of non-steroidal anti-inflammatories (NSAID); Z79.899 Other long term (current) drug therapy; X58.XXXA Exposure to other specified factors, initial encounter; Y93.89 Activity, other specified; Y92.89 Other specified places as the place of occurrence of the external cause; Y99.8 Other external cause status
CPT/HCPCS: 99282

== ENCOUNTER 2020-10-12 08:36 | Emergency (ER) | payer BC | END 2020-10-12 12:00 | disposition left against medical advice (07) | LOC: ED 08:36 | DX: M25.562 Pain in left knee (principal); Z53.21 Procedure and treatment not carried out due to patient leaving prior to being seen by health care provider ==

== ENCOUNTER 2020-11-08 16:58 | Emergency (ER) | payer BC ==
[2020-11-08 17:17] VITALS: BP 152/80
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
[2020-11-08] MEDS ORDERED: ONDANSETRON 4 MG/2 ML INJ IV ONE (19:56)
[2020-11-08] MEDS ORDERED: MORPHINE 4 MG/1 ML INJ IV ONE (19:56)
[2020-11-08] MEDS ORDERED: KETOROLAC 30 MG/1 ML INJ IV ONE (19:56)
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
[2020-11-08 20:50] LABS: Basophils # (Auto) 0.1 K/mm3 (0.0-0.1); Basophils % (Auto) 0.7 % (0.0-1.8); Eosinophils # (Auto) 0.2 K/mm3 (0.0-0.4); Eosinophils % (Auto) 1.7 % (0.0-4.3); Hematocrit 37.7 % (30.3-42.9); Hemoglobin 12.6 gm/dl (10.1-14.3); Lymphocytes # (Auto) 3.8 K/mm3 (1.2-5.4); Lymphocytes % (Auto) 37.1 % (13.4-35.0); Mean Corpuscular HGB Conc 33 % (30-34); Mean Corpuscular Volume 84 fl (79-97); Monocytes # (Auto) 0.5 K/mm3 (0.0-0.8); Monocytes % (Auto) 4.8 % (0.0-7.3); Platelet Count 283 K/mm3 (140-440); Red Blood Count 4.48 M/mm3 (3.65-5.03); Red Cell Distribution Width 16.5 % (13.2-15.2)
[2020-11-08 21:01] LABS: INR 1.01 (0.87-1.13)
[2020-11-08 21:02] LABS: Partial Thromboplastin Time 26.7 Sec. (24.2-36.6)
[2020-11-08 21:11] LABS: Alanine Aminotransferase 18 units/L (7-56); Albumin 3.8 g/dL (3.9-5); BUN/Creatinine Ratio 20; Blood Urea Nitrogen 16 mg/dL (7-17); Calcium 9.9 mg/dL (8.4-10.2); Hemolysis Index 6
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
== END 2020-11-08 23:30 | disposition home or self-care (01) ==
LOC: ED 16:58
DX: S43.401A Unspecified sprain of right shoulder joint, initial encounter (principal); S20.213A Contusion of bilateral front wall of thorax, initial encounter; M62.830 Muscle spasm of back; M62.838 Other muscle spasm; I10 Essential (primary) hypertension; M13.88 Other specified arthritis, other site; E66.01 Morbid (severe) obesity due to excess calories; E03.9 Hypothyroidism, unspecified; Z79.899 Other long term (current) drug therapy; Z98.890 Other specified postprocedural states; X58.XXXA Exposure to other specified factors, initial encounter; Y93.89 Activity, other specified; Y92.89 Other specified places as the place of occurrence of the external cause; Y99.8 Other external cause status
CPT/HCPCS: 36415; 70450; 71275; 72125; 72131; 73030; 80053; 85025; 85610; 85730; 96374; 96375; 99284; J1885; J2270; J2405; Q9967

== ENCOUNTER 2021-02-28 23:28 | Emergency (ER) | payer BC ==
[2021-03-01 01:36] VITALS: BP 189/99
[2021-03-01] MEDS ORDERED: IBUPROFEN 800 MG TAB PO ONE (04:05)
--- NOTE | 2021-03-01 04:54 | XRay Report ---
Right elbow 3 views Indication: right elbow pain Findings: There is no fracture, subluxation, or other acute radiographic abnormality of the right elbow. Signer Name: Jerson Dennison MD Signed: 03/01/2021 4:50 AM Workstation Name: [id number] [id number]
--- NOTE | 2021-03-01 05:03 | Emergency Department Report ---
ED Upper Extremity Inj HPI - General Chief Complaint: Extremity Injury, Upper Stated Complaint: RT ELBOW PAINS Time Seen by Provider: 03/01/21 03:53 Source: patient Mode of arrival: Ambulatory Limitations: No Limitations - History of Present Illness Initial Comments: This is a 56-year-old female nontoxic, well nourished in appearance, no acute signs of distress presents to the ED with c/o of right elbow pain 1 week. 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 Patient denies any injuries or trauma. Patient denies any numbness, tingling, fever, chills, nausea, vomiting, chest pain, shortness of breath, headache, stiff neck. Patient denies any joint swelling or joint redness. Patient denies decreased range of motion but does have some pain. Patient denies any allergies or significant past medical history. MD Complaint: Injury to:: right, elbow Other Extremity Injury: Elbow: Right Place: work Severity scale (0 -10): 3 Improves With: immobilization Worsens With: movement of extremity Associated Symptoms: denies other symptoms. denies: weakness, numbness, neck pain, suspects foreign body, nausea/vomiting, heard/felt popping sensat - Related Data Previous Rx's Medication Instructions Recorded Last Taken Type Cyclobenzaprine [Flexeril 10mg] 10 mg PO Q12H PRN #14 tablet 11/05/18 Unknown Rx Ibuprofen [Motrin] 600 mg PO Q8H PRN #12 tablet 11/05/18 Unknown Rx Cyclobenzaprine [Flexeril] 10 mg PO TID PRN #30 tablet 05/14/19 Unknown Rx Menthol/Camphor [[place] 1 applic TP QID PRN #1 tube 05/14/19 Unknown Rx Ointment] Benzonatate 200 mg PO TID PRN #30 capsule 12/30/19 Unknown Rx Fluticasone [Flonase] 1 spray NS BID PRN #1 bottle 12/30/19 Unknown Rx Levocetirizine Dihydrochloride 5 mg PO QHS #15 tablet 12/30/19 Unknown Rx [Xyzal] tiZANidine [Zanaflex 4mg TAB] 4 mg PO Q8H PRN #21 tablet 05/03/20 Unknown Rx Lidocaine [Lidoderm] 1 each TP Q12H #1 box 07/19/20 Unknown Rx Meloxicam [Mobic] 7.5 mg PO QDAY #30 tablet 07/19/20 Unknown Rx traMADoL [Ultram 50 MG tab] 50 mg PO Q6HR PRN #12 tablet 07/19/20 Unknown Rx Naproxen [Naprosyn TAB] 500 mg PO BID #20 tablet 09/30/20 Unknown Rx predniSONE [Deltasone] 40 mg PO QDAY #10 tab 09/30/20 Unknown Rx Lidocaine [Lidoderm] 1 each TP TID #20 adh..patch 10/12/20 Unknown Rx Naproxen [Naprosyn TAB] 500 mg PO BID PRN #30 tablet 10/12/20 Unknown Rx Tizanidine HCl [Zanaflex 2mg CAP] 2 mg PO TID #12 capsule 10/12/20 Unknown Rx methylPREDNISolone [Medrol 4MG 4 mg PO ONCE #1 tab.ds.pk 10/12/20 Unknown Rx DOSEPAK (21 tabs)] Ibuprofen [Motrin] 800 mg PO Q8HR PRN #30 tablet 11/08/20 Unknown Rx methOCARBAMOL [Robaxin TAB] 750 mg PO Q8H PRN #21 tablet 11/08/20 Unknown Rx traMADoL [Ultram] 50 mg PO Q6HR PRN #12 tablet 11/08/20 Unknown Rx Naproxen 500 mg PO Q12H PRN #12 tablet 03/01/21 Unknown Rx Allergies Allergy/AdvReac Type Severity Reaction Status Date / Time No Known Allergies Allergy Verified 04/22/18 23:18 ED Review of Systems ROS: Stated complaint: RT ELBOW PAINS Other details as noted in HPI Comment: All other systems reviewed and negative Constitutional: denies: chills, fever Eyes: denies: eye pain, eye discharge, vision change ENT: denies: ear pain, throat pain Respiratory: denies: cough, shortness of breath, wheezing Cardiovascular: denies: chest pain, palpitations Endocrine: no symptoms reported Gastrointestinal: denies: abdominal pain, nausea, diarrhea Genitourinary: denies: urgency, dysuria, discharge Musculoskeletal: denies: back pain, joint swelling, arthralgia Skin: denies: rash, lesions Neurological: denies: headache, weakness, paresthesias Psychiatric: denies: anxiety, depression Hematological/Lymphatic: denies: easy bleeding, easy bruising ED Past Medical Hx - Past Medical History Previous Medical History?: Yes Hx Hypertension: Yes Hx Arthritis: Yes Additional medical history: morbid obesity- HYPOTHYROIDISM. Chronic Knee Pain - Surgical History Past Surgical History?: Yes Additional Surgical History: Hysterectomy, Tosillectomy, C section x 1. thyroid - Social History Smoking Status: Former Smoker Substance Use Type: None - Medications Home Medications: Home Medications Medication Instructions Recorded Confirmed Last Taken Type Cyclobenzaprine [Flexeril 10mg] 10 mg PO Q12H PRN #14 tablet 11/05/18 Unknown Rx Ibuprofen [Motrin] 600 mg PO Q8H PRN #12 tablet 11/05/18 Unknown Rx Cyclobenzaprine [Flexeril] 10 mg PO TID PRN #30 tablet 05/14/19 Unknown Rx Menthol/Camphor [[place] 1 applic TP QID PRN #1 tube 05/14/19 Unknown Rx Ointment] Benzonatate 200 mg PO TID PRN #30 capsule 12/30/19 Unknown Rx Fluticasone [Flonase] 1 spray NS BID PRN #1 bottle 12/30/19 Unknown Rx Levocetirizine Dihydrochloride 5 mg PO QHS #15 tablet 12/30/19 Unknown Rx [Xyzal] tiZANidine [Zanaflex 4mg TAB] 4 mg PO Q8H PRN #21 tablet 05/03/20 Unknown Rx Lidocaine [Lidoderm] 1 each TP Q12H #1 box 07/19/20 Unknown Rx Meloxicam [Mobic] 7.5 mg PO QDAY #30 tablet 07/19/20 Unknown Rx traMADoL [Ultram 50 MG tab] 50 mg PO Q6HR PRN #12 tablet 07/19/20 Unknown Rx Naproxen [Naprosyn TAB] 500 mg PO BID #20 tablet 09/30/20 Unknown Rx predniSONE [Deltasone] 40 mg PO QDAY #10 tab 09/30/20 Unknown Rx Lidocaine [Lidoderm] 1 each TP TID #20 adh..patch 10/12/20 Unknown Rx Naproxen [Naprosyn TAB] 500 mg PO BID PRN #30 tablet 10/12/20 Unknown Rx Tizanidine HCl [Zanaflex 2mg CAP] 2 mg PO TID #12 capsule 10/12/20 Unknown Rx methylPREDNISolone [Medrol 4MG 4 mg PO ONCE #1 tab.ds.pk 10/12/20 Unknown Rx DOSEPAK (21 tabs)] Ibuprofen [Motrin] 800 mg PO Q8HR PRN #30 tablet 11/08/20 Unknown Rx methOCARBAMOL [Robaxin TAB] 750 mg PO Q8H PRN #21 tablet 11/08/20 Unknown Rx traMADoL [Ultram] 50 mg PO Q6HR PRN #12 tablet 11/08/20 Unknown Rx Naproxen 500 mg PO Q12H PRN #12 tablet 03/01/21 Unknown Rx ED Physical Exam - General Limitations: No Limitations General appearance: alert, in no apparent distress - Head Head exam: Present: atraumatic, normocephalic - Eye Eye exam: Present: normal appearance - Neck Neck exam: Present: normal inspection, full ROM - Respiratory Respiratory exam: Absent: respiratory distress - Cardiovascular Cardiovascular Exam: Present: regular rate - Extremities Exam Extremities exam: Present: normal inspection, full ROM, tenderness, normal capillary refill. Absent: joint swelling - Expanded Upper Extremity Exam Right General: Present: normal inspection Shoulder Exam: Present: normal inspection, full ROM. Absent: tenderness, swelling Upper Arm exam: Present: normal inspection, full ROM. Absent: tenderness, swelling Elbow exam: Present: normal inspection, full ROM, tenderness. Absent: swelling, abrasion, laceration, ecchymosis, deformity, crepidus, dislocation, erythema, effusion, pain w/ pronation/supination, tenderness over radial head Forearm Wrist exam: Present: normal inspection, full ROM. Absent: tenderness, swelling Hand Wrist exam: Present: normal inspection, full ROM. Absent: tenderness, swelling Vascular: Present: normal capillary refill. Absent: vascular compromise (Neurovascular within normal limits) - Back Exam Back exam: Present: normal inspection, full ROM - Neurological Exam Neurological exam: Present: alert, oriented X3, normal gait - Psychiatric Psychiatric exam: Present: normal affect, normal mood - Skin Skin exam: Present: warm, dry, intact, normal color. Absent: rash ED Course Vital Signs 03/01/21 01:34 Temperature 97.9 F Pulse Rate 70 Respiratory 16 Rate Blood Pressure 189/99 O2 Sat by Pulse 100 Oximetry - Reevaluation(s) Reevaluation #1: 03/01/21 05:01 Patient is speaking in full sentences with no signs of distress noted. ED Medical Decision Making - Medical Decision Making This is a 56-year-old female that presents with right elbow strain. Patient is stable and was examined by me. I referred patient to an orthopedic doctor for further evaluation for possible MRI. X-ray has been obtained and dictated by the radiologist. Patient is notified of the x-ray report with noted by the patient. Patient does have normal ROM with no tenderness and no joint swelling. No ecchymosis. no joint redness or swelling. Not warm to touch. No signs of cellulites present. Patient has a [facility] elbow immobilizer. Patient was instructed to RICE therapy. Patient received Motrin for pain. Patient is discharged with Naproxen. At time of discharge, the patient does not seem toxic or ill in appearance. No acute signs of distress noted. Patient agrees to discharge treatment plan of care. No further questions noted by the patient. Critical care attestation.: If time is entered above; I have spent that time in minutes in the direct care of this critically ill patient, excluding procedure time. ED Disposition Clinical Impression: Strain of right elbow Qualifiers: Encounter type: initial encounter Qualified Code(s): S46.911A - Strain of unspecified muscle, fascia and tendon at shoulder and upper arm level, right arm, initial encounter Disposition: - TO HOME OR SELFCARE Is pt being admited?: No Does the pt Need Aspirin: No Condition: Stable Instructions: RICE Therapy for Routine Care of Injuries, [id number] Additional Instructions: Follow-up with a orthopedic doctor in 3-5 days or if symptoms worsen and continue return to emergency room as soon as possible. No physical activity that extremity until cleared by orthopedic doctor Prescriptions: Naproxen 500 mg PO Q12H PRN #12 tablet PRN Reason: Pain , Severe (7-10) Referrals: PRIMARY MD EVE [Primary Care Provider] - 3-5 Days GITA GIANG MD [Staff Physician] - 3-5 Days Forms: Work/School Release Form(ED) Time of Disposition: 05:03
== END 2021-03-01 05:10 | disposition home or self-care (01) ==
LOC: ED 23:28
DX: S46.911A Strain of unspecified muscle, fascia and tendon at shoulder and upper arm level, right arm, initial encounter (principal); I10 Essential (primary) hypertension; M19.91 Primary osteoarthritis, unspecified site; Z90.710 Acquired absence of both cervix and uterus; Z90.89 Acquired absence of other organs; Z98.890 Other specified postprocedural states; Z87.891 Personal history of nicotine dependence; Z79.899 Other long term (current) drug therapy; X50.0XXA Overexertion from strenuous movement or load, initial encounter; Y93.89 Activity, other specified; Y92.89 Other specified places as the place of occurrence of the external cause; Y99.8 Other external cause status

== ENCOUNTER 2021-03-21 11:56 | Outpatient (CLI) | payer BC ==
--- NOTE | 2021-03-21 14:20 | Vascular Lab Report ---
DUPLEX DOPPLER LOWER EXTREMITY VEINS, RIGHT INDICATION: PAIN IN LIMB. Lower extremity pain and swelling. TECHNIQUE: Duplex doppler imaging was performed through the veins of the right lower extremity using venous comp ression and other maneuvers. COMPARISON: None available. FINDINGS: Common Femoral vein: Negative. Superficial Femoral vein: Negative. Popliteal vein: Negative. Calf veins: Negative. Additional findings: None. IMPRESSION: 1. No sonographic evidence for DVT in the right lower extremity. Signer Name: Tomi Guzman MD Signed: 03/21/2021 2:16 PM Workstation Name: [email or web address]
== END 2021-03-21 11:57 | disposition home or self-care (01) ==
LOC: VAS 11:56
DX: M79.661 Pain in right lower leg (principal)

== ENCOUNTER 2021-11-08 00:13 | Emergency (ER) | payer BC ==
[2021-11-08 00:21] VITALS: BP 155/91
[2021-11-08] MEDS ORDERED: KETOROLAC 30 MG/1 ML INJ IM ONE (01:09)
[2021-11-08] MEDS ORDERED: DEXAMETHASONE 4 MG TAB PO ONE (01:09)
--- NOTE | 2021-11-08 01:11 | Emergency Department Report ---
HPI - General Chief Complaint: Extremity Injury, Lower Time Seen by Provider: 11/08/21 00:58 - HPI HPI: 56-year-old -[place] female presents to the emergency department with a complaint of pain to the right buttock, right hip and radiation of this pain down through the right thigh. It started this evening, but the patient denies any trauma, injury, or known inciting event. She says that she has a history of arthritis "in that area" in reference to her right hip. She tried some Advil earlier in the evening without any relief. She denies any swelling of the leg, skin color change, rash or lesion. No recent travel, recent surgery or immo bility. ED Past Medical Hx - Past Medical History Hx Hypertension: Yes Hx Arthritis: Yes Additional medical history: morbid obesity- HYPOTHYROIDISM. Chronic Knee Pain - Surgical History Additional Surgical History: Hysterectomy, Tosillectomy, C section x 1. thyroid - Social History Smoking Status: Former Smoker Substance Use Type: None - Medications Home Medications: Home Medications Medication Instructions Recorded Confirmed Last Taken Type Cyclobenzaprine [Flexeril 10mg] 10 mg PO Q12H PRN #14 tablet 11/05/18 Unknown Rx Ibuprofen [Motrin] 600 mg PO Q8H PRN #12 tablet 11/05/18 Unknown Rx Menthol/Camphor [[place] 1 applic TP QID PRN #1 tube 05/14/19 Unknown Rx Ointment] Benzonatate 200 mg PO TID PRN #30 capsule 12/30/19 Unknown Rx Fluticasone [Flonase] 1 spray NS BID PRN #1 bottle 12/30/19 Unknown Rx Levocetirizine Dihydrochloride 5 mg PO QHS #15 tablet 12/30/19 Unknown Rx [Xyzal] tiZANidine [Zanaflex 4mg TAB] 4 mg PO Q8H PRN #21 tablet 05/03/20 Unknown Rx Lidocaine [Lidoderm] 1 each TP Q12H #1 box 07/19/20 Unknown Rx Meloxicam [Mobic] 7.5 mg PO QDAY #30 tablet 07/19/20 Unknown Rx traMADoL [Ultram 50 MG tab] 50 mg PO Q6HR PRN #12 tablet 07/19/20 Unknown Rx Naproxen [Naprosyn TAB] 500 mg PO BID #20 tablet 09/30/20 Unknown Rx predniSONE [Deltasone] 40 mg PO QDAY #10 tab 09/30/20 Unknown Rx Lidocaine [Lidoderm] 1 each TP TID #20 adh..patch 10/12/20 Unknown Rx Naproxen [Naprosyn TAB] 500 mg PO BID PRN #30 tablet 10/12/20 Unknown Rx Tizanidine HCl [Zanaflex 2mg CAP] 2 mg PO TID #12 capsule 10/12/20 Unknown Rx methylPREDNISolone [Medrol 4MG 4 mg PO ONCE #1 tab.ds.pk 10/12/20 Unknown Rx DOSEPAK (21 tabs)] methOCARBAMOL [Robaxin TAB] 750 mg PO Q8H PRN #21 tablet 11/08/20 Unknown Rx traMADoL [Ultram] 50 mg PO Q6HR PRN #12 tablet 11/08/20 Unknown Rx Naproxen 500 mg PO Q12H PRN #12 tablet 03/01/21 Unknown Rx Cyclobenzaprine [Flexeril 10 MG 10 mg PO TID PRN #12 tablet 11/08/21 Unknown Rx TAB] Ibuprofen [Motrin 800 MG tab] 800 mg PO Q8HR PRN #20 tablet 11/08/21 Unknown Rx ED Review of Systems ROS: Stated complaint: ARITHIS PAIN Other details as noted in HPI Comment: All other systems reviewed and negative Constitutional: denies: chills, fever Cardiovascular: denies: edema Musculoskeletal: arthralgia, myalgia. denies: back pain, joint swelling Skin: denies: rash, lesions Neurological: denies: numbness, paresthesias Physical Exam - Physical Exam Vital Signs: Vital Signs 11/08/21 00:16 Temperature 98 F Pulse Rate 81 Respiratory 18 Rate Blood Pressure 155/91 [Right] O2 Sat by Pulse 97 Oximetry Physical Exam: GENERAL: The patient is well-developed well-nourished. HENT: Normocephalic. Atraumatic. Patient has moist mucous membranes. EYES: Extraocular motions are intact. Pupils equal reactive to light bilaterally. NECK: Supple. Trachea is midline. ABDOMEN: There is no abdominal distention. SKIN: Skin is warm and dry. NEURO: The patient is awake, alert, and oriented. The patient is cooperative. Normal speech. MUSCULOSKELETAL: There is some mild right hip and right thigh tenderness to palpation. No obvious deformity. Muscle strength 5-5 for bilateral lower extremities. There is no limitation range of motion. ED Course Vital Signs 11/08/21 00:16 Temperature 98 F Pulse Rate 81 Respiratory 18 Rate Blood Pressure 155/91 [Right] O2 Sat by Pulse 97 Oximetry ED Medical Decision Making - Medical Decision Making This patient presents with the complaint of some pain to the right hip, right buttock and into the right thigh. She denies any swelling, skin color change. She denies any trauma, fall, injury, or any known inciting event. The patient says that she has been evaluated in the past and was told that she had right hip arthritis. She appears neurovascularly intact. Patient is seen ambulatory in the emergency department and both appears and feels stable. 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 As the patient did not have any fall, trauma or injury, I do not feel that any imaging is necessary at this time. There may be some arthritis or even some radicular pain. She was given a dose of Decadron and Toradol. She will be discharged home with an outpatient referral for orthopedics. Critical Care Time: No Critical care attestation.: If time is entered above; I have spent that time in minutes in the direct care of this critically ill patient, excluding procedure time. ED Disposition Clinical Impression: Right hip pain, Right thigh pain Disposition: 01 HOME / SELF CARE / HOMELESS Is pt being admited?: No Condition: Stable Instructions: Hip Pain, Musculoskeletal Pain Additional Instructions: Please follow-up with your primary care physician in the next few days. I am giving you a referral for a local orthopedist, Dr. Burns, to follow-up regarding your right hip and thigh pain. You have been prescribed a medication that is sedating and therefore should not be taken prior to driving, working, and responsible for children and in no way should be mixed with alcohol of any quantity. Return to the emergency department with any worsening of your symptoms, new or concerning symptoms not addressed during this current emergency department visit, or with any acute distress. Prescriptions: Cyclobenzaprine [Flexeril 10 MG TAB] 10 mg PO TID PRN #12 tablet PRN Reason: Muscle Spasm Ibuprofen [Motrin 800 MG tab] 800 mg PO Q8HR PRN #20 tablet PRN Reason: Pain , Severe (7-10) Referrals: LEONOR BURNS MD [Staff Physician] - 3-5 Days Forms: Work/School Release Form(ED) Time of Disposition: 01:12
== END 2021-11-08 01:35 | disposition home or self-care (01) ==
LOC: ED 00:13
DX: M25.551 Pain in right hip (principal); M79.651 Pain in right thigh; I10 Essential (primary) hypertension; M54.50 Low back pain, unspecified; M19.90 Unspecified osteoarthritis, unspecified site; E03.9 Hypothyroidism, unspecified; G89.29 Other chronic pain; Z90.710 Acquired absence of both cervix and uterus; Z90.89 Acquired absence of other organs; Z87.891 Personal history of nicotine dependence; Z98.890 Other specified postprocedural states
CPT/HCPCS: 96372; 99282; J1885; J8540

== ENCOUNTER 2021-11-22 23:13 | Emergency (ER) | payer BC ==
--- NOTE | 2021-11-23 06:29 | XRay Report ---
CHEST 2 VIEWS INDICATION / CLINICAL INFORMATION: cough fever. COMPARISON: 03/15/2020 FINDINGS: SUPPORT DEVICES: None. HEART / MEDIASTINUM: No significant abnormality. LUNGS / PLEURA: No significant pulmonary or pleural abnormality. No pneumothorax. ADDITIONAL FINDINGS: No significant additional findings. IMPRESSION: 1. No acute findings. Signer Name: Christopher Sullivan DO Signed: 11/23/2021 6:25 AM Workstation Name: [id number]
--- NOTE | 2021-11-23 07:31 | Emergency Department Report ---
Minor Respiratory - HPI Severity: mild Minor Respiratory: Yes Rhinorrhea, Yes Able to Tolerate Fluids, Yes Cough, Yes Sick Contacts, No Sore Throat, No Ear Pain, No Hemoptysis, No Chest Pain, No Shortness of Breath, No Fever <NAEY PAGE A - Last Filed: 11/23/21 07:28> <CAMILA CHEUNG - Last Filed: 11/23/21 15:49> - HPI Chief Complaint: Upper Respiratory Infection Stated Complaint: BODYACHES/WEAKNESS Time Seen by Provider: 11/23/21 06:50 ED Review of Systems ROS: Stated complaint: BODYACHES/WEAKNESS Other details as noted in HPI Constitutional: malaise. denies: chills, fever Eyes: denies: eye pain, eye discharge, vision change ENT: congestion. denies: ear pain, throat pain Respiratory: cough. denies: shortness of breath, wheezing Cardiovascular: denies: chest pain, palpitations Endocrine: no symptoms reported Gastrointestinal: denies: abdominal pain, nausea, diarrhea Genitourinary: denies: urgency, dysuria, discharge Musculoskeletal: myalgia. denies: back pain, joint swelling, arthralgia Skin: denies: rash, lesions Neurological: denies: headache, weakness, paresthesias Psychiatric: denies: anxiety, depression Hematological/Lymphatic: denies: easy bleeding, easy bruising <NAYE PAGE - Last Filed: 11/23/21 07:28> ROS: Stated complaint: BODYACHES/WEAKNESS Other details as noted in HPI <CAMILA CHEUNG - Last Filed: 11/23/21 15:49> ED Past Medical Hx - Past Medical History Hx Hypertension: Yes Hx Arthritis: Yes Additional medical history: morbid obesity- HYPOTHYROIDISM. Chronic Knee Pain - Surgical History Past Surgical History?: No Additional Surgical History: Hysterectomy, Tosillectomy, C section x 1. thyroid - Social History Smoking Status: Former Smoker Substance Use Type: None <NAYE PAGE - Last Filed: 11/23/21 07:28> <CAMILA CHEUNG - Last Filed: 11/23/21 15:49> - Medications Home Medications: Home Medications Medication Instructions Recorded Confirmed Last Taken Type Cyclobenzaprine [Flexeril 10mg] 10 mg PO Q12H PRN #14 tablet 12/11/18 Unknown Rx Ibuprofen [Motrin] 600 mg PO Q8H PRN #12 tablet 11/05/18 Unknown Rx Menthol/Camphor [[place] 1 applic TP QID PRN #1 tube 05/14/19 Unknown Rx Ointment] Benzonatate 200 mg PO TID PRN #30 capsule 12/30/19 Unknown Rx Fluticasone [Flonase] 1 spray NS BID PRN #1 bottle 12/30/19 Unknown Rx Levocetirizine Dihydrochloride 5 mg PO QHS #15 tablet 12/30/19 Unknown Rx [Xyzal] tiZANidine [Zanaflex 4mg TAB] 4 mg PO Q8H PRN #21 tablet 05/03/20 Unknown Rx Lidocaine [Lidoderm] 1 each TP Q12H #1 box 07/19/20 Unknown Rx Meloxicam [Mobic] 7.5 mg PO QDAY #30 tablet 07/19/20 Unknown Rx traMADoL [Ultram 50 MG tab] 50 mg PO Q6HR PRN #12 tablet 07/19/20 Unknown Rx Naproxen [Naprosyn TAB] 500 mg PO BID #20 tablet 09/30/20 Unknown Rx predniSONE [Deltasone] 40 mg PO QDAY #10 tab 09/30/20 Unknown Rx Lidocaine [Lidoderm] 1 each TP TID #20 adh..patch 10/12/20 Unknown Rx Naproxen [Naprosyn TAB] 500 mg PO BID PRN #30 tablet 10/12/20 Unknown Rx Tizanidine HCl [Zanaflex 2mg CAP] 2 mg PO TID #12 capsule 10/12/20 Unknown Rx methylPREDNISolone [Medrol 4MG 4 mg PO ONCE #1 tab.ds.pk 10/12/20 Unknown Rx DOSEPAK (21 tabs)] methOCARBAMOL [Robaxin TAB] 750 mg PO Q8H PRN #21 tablet 11/08/20 Unknown Rx traMADoL [Ultram] 50 mg PO Q6HR PRN #12 tablet 11/08/20 Unknown Rx Naproxen 500 mg PO Q12H PRN #12 tablet 03/01/21 Unknown Rx Cyclobenzaprine [Flexeril 10 MG 10 mg PO TID PRN #12 tablet 11/08/21 Unknown Rx TAB] Ibuprofen [Motrin 800 MG tab] 800 mg PO Q8HR PRN #20 tablet 11/08/21 Unknown Rx Benzonatate [Tessalon Perles] 100 mg PO Q8HR #30 capsule 11/23/21 Unknown Rx Naproxen 500 mg PO BID #20 tablet 11/23/21 Unknown Rx Minor Respiratory Exam - Exam General: Vital signs noted. No distress. Alert and acting appropriately. HEENT: Yes Moist Mucous Membranes, No Pharyngeal Erythema, No Pharyngeal Exudates, No Rhinorrhea, No Conjuctival Injection, No Frontal Tenderness, No Maxillary Tenderness Ear: Neither TM Bulge, Neither TM Erythema, Neither EAC Pain, Neither EAC Discharge Neck: Yes Supple, No Adenopathy Lungs: Yes Good Air Exchange, No Wheezes, No Ronchi, No Stridor, No Cough, No Labored Respirations, No Retractions, No Use of Accessory Muscles, No Other Abnormal Lung Sounds Heart: Yes Regular, No Murmur Abdomen: Yes Normal Bowel Sounds, No Tenderness, No Peritoneal Signs Skin: No Rash, No Edema Neurologic: Alert and oriented, no deficits. Musculoskeletal: Unremarkable. No lower extreme edema, negative Homans' sign bilaterally. <NAYE PAGE A - Last Filed: 11/23/21 07:28> - Exam General: Vital signs noted. No distress. Alert and acting appropriately. Neurologic: Alert and oriented, no deficits. Musculoskeletal: Unremarkable. <CAMILA CHEUNG - Last Filed: 11/23/21 15:49> ED Course Vital Signs 11/23/21 08:05 Temperature 97.2 F L Pulse Rate 89 Respiratory 16 Rate Blood Pressure 153/86 [Right] O2 Sat by Pulse 97 Oximetry <CAMILA CHEUNG - Last Filed: 11/23/21 15:49> ED Medical Decision Making - Medical Decision Making Patient nontoxic, well-appearing, son with similar symptoms. Suspect this could be viral and likely Covid due to the current pandemic. Recommended social distancing per CDC guidelines, will give work note and symptomatic treatment. Return to the ER with any changing or worsening symptoms. Patient was agreeable to plan. All her questions were answered. - Differential Diagnosis COVID-19, pneumonia, influenza <NAYE PAGE - Last Filed: 11/23/21 07:28> Critical care attestation.: If time is entered above; I have spent that time in minutes in the direct care of this critically ill patient, excluding procedure time. <NAYE PAGE - Last Filed: 11/23/21 07:28> Critical care attestation.: If time is entered above; I have spent that time in minutes in the direct care of this critically ill patient, excluding procedure time. <CAMILA CHEUNG - Last Filed: 11/23/21 15:49> ED Disposition Is pt being admited?: No Time of Disposition: 07:30 <NAYE PAGE A - Last Filed: 11/23/21 07:28> Is pt being admited?: No <CAMILA CHEUNG - Last Filed: 11/23/21 15:49> Clinical Impression: Acute viral syndrome, Suspected COVID-19 virus infection Disposition: 01 HOME / SELF CARE / HOMELESS Condition: Stable Instructions: Viral Respiratory Infection, [place] Prescriptions: Naproxen 500 mg PO BID #20 tablet Benzonatate [Tessalon Perles] 100 mg PO Q8HR #30 capsule Referrals: [facility] [Provider Group] - 3-5 Days Forms: Work/School Release Form(ED)
[2021-11-23 08:06] VITALS: BP 153/86
== END 2021-11-23 08:08 | disposition home or self-care (01) ==
LOC: ED 23:13
DX: B34.9 Viral infection, unspecified (principal); Z20.822 Contact with and (suspected) exposure to COVID-19; I10 Essential (primary) hypertension; Z90.710 Acquired absence of both cervix and uterus; M19.90 Unspecified osteoarthritis, unspecified site; Z90.89 Acquired absence of other organs; Z98.890 Other specified postprocedural states
CPT/HCPCS: 71046; 99283

== ENCOUNTER 2022-03-06 23:04 | Emergency (ER) | payer BC ==
[2022-03-07] MEDS ORDERED: KETOROLAC 60 MG/2 ML INJ IM ONE (06:37)
[2022-03-07] MEDS ORDERED: LORazepam 2 MG/ML VIAL IM ONE (06:40)
--- NOTE | 2022-03-07 06:50 | Emergency Department Report ---
ED Lower Extremity HPI - General Chief Complaint: Extremity Problem,Nontraumatic Stated Complaint: RT HIP PAIN Time Seen by Provider: 03/07/22 06:23 Source: patient Mode of arrival: Ambulatory Limitations: No Limitations - History of Present Illness Initial Comments: 57-year-old female with a history of chronic arthritis worsen in her right hip and knee who now present with a flareup the last couple of nights. She has been seen by Orthopedic who has been trying joint steroid injection that has been working but not the last episode. She has the last joint injection 6 weeks ago and have not helped. She reports that she missed an appointment in 2019 because of covid and owing the Orthopedic clinic. Pt denies any recent fall or trauma to the joint. Putting weight on the hip worsen pain. She has been given diclofenac but have to stopped it due to side effect. Pt has been tried on Naproxen as well with minimal improvement. No other modifying or associated factors reported. - Related Data Previous Rx's Medication Instructions Recorded Last Taken Type Cyclobenzaprine [Flexeril 10mg] 10 mg PO Q12H PRN #14 tablet 11/05/18 Unknown Rx Ibuprofen [Motrin] 600 mg PO Q8H PRN #12 tablet 11/05/18 Unknown Rx Menthol/Camphor [[place] 1 applic TP QID PRN #1 tube 05/14/19 Unknown Rx Ointment] Benzonatate 200 mg PO TID PRN #30 capsule 12/30/19 Unknown Rx Fluticasone [Flonase] 1 spray NS BID PRN #1 bottle 12/30/19 Unknown Rx Levocetirizine Dihydrochloride 5 mg PO QHS #15 tablet 12/30/19 Unknown Rx [Xyzal] tiZANidine [Zanaflex 4mg TAB] 4 mg PO Q8H PRN #21 tablet 05/03/20 Unknown Rx Lidocaine [Lidoderm] 1 each TP Q12H #1 box 07/19/20 Unknown Rx Meloxicam [Mobic] 7.5 mg PO QDAY #30 tablet 07/19/20 Unknown Rx traMADoL [Ultram 50 MG tab] 50 mg PO Q6HR PRN #12 tablet 07/19/20 Unknown Rx Naproxen [Naprosyn TAB] 500 mg PO BID #20 tablet 09/30/20 Unknown Rx predniSONE [Deltasone] 40 mg PO QDAY #10 tab 11/05/20 Unknown Rx Lidocaine [Lidoderm] 1 each TP TID #20 adh..patch 10/12/20 Unknown Rx Naproxen [Naprosyn TAB] 500 mg PO BID PRN #30 tablet 10/12/20 Unknown Rx Tizanidine HCl [Zanaflex 2mg CAP] 2 mg PO TID #12 capsule 10/12/20 Unknown Rx methylPREDNISolone [Medrol 4MG 4 mg PO ONCE #1 tab.ds.pk 10/12/20 Unknown Rx DOSEPAK (21 tabs)] methOCARBAMOL [Robaxin TAB] 750 mg PO Q8H PRN #21 tablet 11/08/20 Unknown Rx traMADoL [Ultram] 50 mg PO Q6HR PRN #12 tablet 11/08/20 Unknown Rx Naproxen 500 mg PO Q12H PRN #12 tablet 03/01/21 Unknown Rx Cyclobenzaprine [Flexeril 10 MG 10 mg PO TID PRN #12 tablet 11/08/21 Unknown Rx TAB] Ibuprofen [Motrin 800 MG tab] 800 mg PO Q8HR PRN #20 tablet 11/08/21 Unknown Rx Benzonatate [Tessalon Perles] 100 mg PO Q8HR #30 capsule 11/23/21 Unknown Rx Naproxen 500 mg PO BID #20 tablet 11/23/21 Unknown Rx Cyclobenzaprine [Flexeril] 10 mg PO TID PRN 5 Days #20 tab 03/07/22 Unknown Rx Ketorolac [Toradol] 10 mg PO Q6H PRN #20 tab 03/07/22 Unknown Rx Allergies Allergy/AdvReac Type Severity Reaction Status Date / Time No Known Allergies Allergy Verified 11/23/21 02:23 ED Review of Systems ROS: Stated complaint: RT HIP PAIN Other details as noted in HPI Comment: All other systems reviewed and negative Musculoskeletal: arthralgia, myalgia, other (right hip and knee ) ED Past Medical Hx - Past Medical History Hx Hypertension: Yes Hx Arthritis: Yes Additional medical history: morbid obesity- HYPOTHYROIDISM. Chronic Knee Pain - Surgical History Additional Surgical History: Hysterectomy, Tosillectomy, C section x 1. thyroid - Social History Smoking Status: Never Smoker Substance Use Type: Alcohol - Medications Home Medications: Home Medications Medication Instructions Recorded Confirmed Last Taken Type Cyclobenzaprine [Flexeril 10mg] 10 mg PO Q12H PRN #14 tablet 11/05/18 Unknown Rx Ibuprofen [Motrin] 600 mg PO Q8H PRN #12 tablet 11/05/18 Unknown Rx Menthol/Camphor [[place] 1 applic TP QID PRN #1 tube 05/14/19 Unknown Rx Ointment] Benzonatate 200 mg PO TID PRN #30 capsule 12/30/19 Unknown Rx Fluticasone [Flonase] 1 spray NS BID PRN #1 bottle 12/30/19 Unknown Rx Levocetirizine Dihydrochloride 5 mg PO QHS #15 tablet 12/30/19 Unknown Rx [Xyzal] tiZANidine [Zanaflex 4mg TAB] 4 mg PO Q8H PRN #21 tablet 05/03/20 Unknown Rx Lidocaine [Lidoderm] 1 each TP Q12H #1 box 07/19/20 Unknown Rx Meloxicam [Mobic] 7.5 mg PO QDAY #30 tablet 07/19/20 Unknown Rx traMADoL [Ultram 50 MG tab] 50 mg PO Q6HR PRN #12 tablet 07/19/20 Unknown Rx Naproxen [Naprosyn TAB] 500 mg PO BID #20 tablet 09/30/20 Unknown Rx predniSONE [Deltasone] 40 mg PO QDAY #10 tab 09/30/20 Unknown Rx Lidocaine [Lidoderm] 1 each TP TID #20 adh..patch 10/12/20 Unknown Rx Naproxen [Naprosyn TAB] 500 mg PO BID PRN #30 tablet 10/12/20 Unknown Rx Tizanidine HCl [Zanaflex 2mg CAP] 2 mg PO TID #12 capsule 10/12/20 Unknown Rx methylPREDNISolone [Medrol 4MG 4 mg PO ONCE #1 tab.ds.pk 10/12/20 Unknown Rx DOSEPAK (21 tabs)] methOCARBAMOL [Robaxin TAB] 750 mg PO Q8H PRN #21 tablet 11/08/20 Unknown Rx traMADoL [Ultram] 50 mg PO Q6HR PRN #12 tablet 11/08/20 Unknown Rx Naproxen 500 mg PO Q12H PRN #12 tablet 03/01/21 Unknown Rx Cyclobenzaprine [Flexeril 10 MG 10 mg PO TID PRN #12 tablet 11/08/21 Unknown Rx TAB] Ibuprofen [Motrin 800 MG tab] 800 mg PO Q8HR PRN #20 tablet 11/08/21 Unknown Rx Benzonatate [Tessalon Perles] 100 mg PO Q8HR #30 capsule 11/23/21 Unknown Rx Naproxen 500 mg PO BID #20 tablet 11/23/21 Unknown Rx Cyclobenzaprine [Flexeril] 10 mg PO TID PRN 5 Days #20 tab 03/07/22 Unknown Rx Ketorolac [Toradol] 10 mg PO Q6H PRN #20 tab 03/07/22 Unknown Rx ED Physical Exam - General Limitations: No Limitations General appearance: alert, in no apparent distress - Head Head exam: Present: normal inspection - Eye Eye exam: Present: normal appearance Pupils: Present: normal accommodation - ENT ENT exam: Present: normal exam, mucous membranes moist - Neck Neck exam: Present: normal inspection, full ROM. Absent: tenderness - Respiratory Respiratory exam: Present: normal lung sounds bilaterally. Absent: respiratory distress - Cardiovascular Cardiovascular Exam: Present: regular rate, normal rhythm, normal heart sounds - GI/Abdominal GI/Abdominal exam: Present: soft, normal bowel sounds. Absent: tenderness - Extremities Exam Extremities exam: Present: normal inspection, tenderness (right hip joint laterally ), normal capillary refill - Back Exam Back exam: Present: normal inspection, full ROM. Absent: tenderness, CVA tenderness (R), CVA tenderness (L) - Neurological Exam Neurological exam: Present: alert, oriented X3 - Psychiatric Psychiatric exam: Present: normal affect, normal mood - Skin Skin exam: Present: warm, intact. Absent: rash ED Course Vital Signs 03/07/22 03/07/22 03/07/22 02:10 06:15 06:31 Temperature 97.7 F Pulse Rate 61 Respiratory 18 Rate Blood Pressure 140/85 125/63 O2 Sat by Pulse 100 99 99 Oximetry 03/07/22 06:36 Temperature Pulse Rate Respiratory Rate Blood Pressure O2 Sat by Pulse 100 Oximetry - Reevaluation(s) Reevaluation #1: 03/07/22 06:52 here with chronic right hip and knee arthritis-- with Orthopedic establishment-- and joint injection-- will go ahead and treat acute flare up with toradol + ativan and d/c home on toradol and close follow up with her Orthopedic for further evaluation and treatment. Critical care attestation.: If time is entered above; I have spent that time in minutes in the direct care of this critically ill patient, excluding procedure time. ED Disposition Clinical Impression: Arthritis of right hip Disposition: 01 HOME / SELF CARE / HOMELESS Is pt being admited?: No Does the pt Need Aspirin: No Condition: Stable Instructions: Arthritis, [id number], Preventing Osteoarthritis, Adult Additional Instructions: Take your pain medication as prescribed Also take your muscle relaxant as prescribed to help your symptoms It is okay to apply heat to this area for 10 to 15 minutes every 4-6 hours the next 72 hours to help your symptoms Call and schedule follow-up with your orthopedic/primary doctor in the next 3 to 5 days for further evaluation and treatment Please do not hesitate to call or return to emergency if your symptoms worsen Prescriptions: Cyclobenzaprine [Flexeril] 10 mg PO TID PRN 5 Days #20 tab PRN Reason: Muscle Spasm Ketorolac [Toradol] 10 mg PO Q6H PRN #20 tab PRN Reason: Pain Referrals: JING SCHWARTZ MD [Primary Care Provider] - 3-5 Days
[2022-03-07 07:52] VITALS: BP 146/76
== END 2022-03-07 07:30 | disposition home or self-care (01) ==
LOC: ED 23:04
DX: M16.11 Unilateral primary osteoarthritis, right hip (principal); I10 Essential (primary) hypertension; F10.20 Alcohol dependence, uncomplicated
CPT/HCPCS: 96372; 99282; J1885; J2060

== ENCOUNTER 2022-03-18 15:46 | Emergency (ER) | payer BC ==
--- NOTE | 2022-03-18 16:22 | Emergency Department Report ---
ED Fall HPI - General Chief Complaint: Fall Stated Complaint: HEAD INJURY,KNEE Time Seen by Provider: 03/18/22 16:15 Source: patient Mode of arrival: Ambulatory - History of Present Illness Initial Comments: 57-year-old -[place] female presents to the emergency room stating she was at work when she slipped and fell and hit the front of her head. Patient complains of left knee pain as well. She denies any loss of consciousness no nausea no vomiting. She was able to place ice on her head that started to swell. Patient reports she has a past medical history of hypertension and Graves' disease and is compliant with all her medications. MD Complaint: fall -: This afternoon Fall From: standing When Fall Occurred: 1-3 hours [employer] Fall Witnessed: yes, by bystander Place Fall Occurred: work Loss of Consciousness: none Prolonged Down Time?: no Symptoms Prior to Fall: none Location: head Location - Extremities: Left: Knee Severity scale (0 -10): 6 Context: tripped/slipped Associated Symptoms: headache - Related Data Previous Rx's Medication Instructions Recorded Last Taken Type Cyclobenzaprine [Flexeril 10mg] 10 mg PO Q12H PRN #14 tablet 11/05/18 Unknown Rx Ibuprofen [Motrin] 600 mg PO Q8H PRN #12 tablet 11/05/18 Unknown Rx Menthol/Camphor [[place] 1 applic TP QID PRN #1 tube 05/14/19 Unknown Rx Ointment] Benzonatate 200 mg PO TID PRN #30 capsule 12/30/19 Unknown Rx Fluticasone [Flonase] 1 spray NS BID PRN #1 bottle 12/30/19 Unknown Rx Levocetirizine Dihydrochloride 5 mg PO QHS #15 tablet 12/30/19 Unknown Rx [Xyzal] tiZANidine [Zanaflex 4mg TAB] 4 mg PO Q8H PRN #21 tablet 05/03/20 Unknown Rx Lidocaine [Lidoderm] 1 each TP Q12H #1 box 07/19/20 Unknown Rx Meloxicam [Mobic] 7.5 mg PO QDAY #30 tablet 07/19/20 Unknown Rx traMADoL [Ultram 50 MG tab] 50 mg PO Q6HR PRN #12 tablet 07/19/20 Unknown Rx Naproxen [Naprosyn TAB] 500 mg PO BID #20 tablet 09/30/20 Unknown Rx predniSONE [Deltasone] 40 mg PO QDAY #10 tab 09/30/20 Unknown Rx Lidocaine [Lidoderm] 1 each TP TID #20 adh..patch 10/12/20 Unknown Rx Naproxen [Naprosyn TAB] 500 mg PO BID PRN #30 tablet 10/12/20 Unknown Rx Tizanidine HCl [Zanaflex 2mg CAP] 2 mg PO TID #12 capsule 10/12/20 Unknown Rx methylPREDNISolone [Medrol 4MG 4 mg PO ONCE #1 tab.ds.pk 10/12/20 Unknown Rx DOSEPAK (21 tabs)] methOCARBAMOL [Robaxin TAB] 750 mg PO Q8H PRN #21 tablet 11/08/20 Unknown Rx traMADoL [Ultram] 50 mg PO Q6HR PRN #12 tablet 11/08/20 Unknown Rx Naproxen 500 mg PO Q12H PRN #12 tablet 03/01/21 Unknown Rx Cyclobenzaprine [Flexeril 10 MG 10 mg PO TID PRN #12 tablet 11/08/21 Unknown Rx TAB] Ibuprofen [Motrin 800 MG tab] 800 mg PO Q8HR PRN #20 tablet 11/08/21 Unknown Rx Benzonatate [Tessalon Perles] 100 mg PO Q8HR #30 capsule 11/23/21 Unknown Rx Naproxen 500 mg PO BID #20 tablet 11/23/21 Unknown Rx Cyclobenzaprine [Flexeril] 10 mg PO TID PRN 5 Days #20 tab 03/07/22 Unknown Rx Ketorolac [Toradol] 10 mg PO Q6H PRN #20 tab 03/07/22 Unknown Rx Allergies Allergy/AdvReac Type Severity Reaction Status Date / Time No Known Allergies Allergy Verified 03/18/22 17:28 ED Review of Systems ROS: Stated complaint: HEAD INJURY,KNEE Other details as noted in HPI Comment: All other systems reviewed and negative ED Past Medical Hx - Past Medical History Previous Medical History?: Yes Hx Hypertension: Yes Hx Arthritis: Yes Additional medical history: morbid obesity- HYPOTHYROIDISM. Chronic Knee Pain - Surgical History Past Surgical History?: Yes Additional Surgical History: Hysterectomy, Tosillectomy, C section x 1. thyroid - Social History Smoking Status: Never Smoker Substance Use Type: Alcohol - Medications Home Medications: Home Medications Medication Instructions Recorded Confirmed Last Taken Type Cyclobenzaprine [Flexeril 10mg] 10 mg PO Q12H PRN #14 tablet 11/05/18 Unknown Rx Ibuprofen [Motrin] 600 mg PO Q8H PRN #12 tablet 11/05/18 Unknown Rx Menthol/Camphor [[place] 1 applic TP QID PRN #1 tube 05/14/19 Unknown Rx Ointment] Benzonatate 200 mg PO TID PRN #30 capsule 12/30/19 Unknown Rx Fluticasone [Flonase] 1 spray NS BID PRN #1 bottle 12/30/19 Unknown Rx Levocetirizine Dihydrochloride 5 mg PO QHS #15 tablet 12/30/19 Unknown Rx [Xyzal] tiZANidine [Zanaflex 4mg TAB] 4 mg PO Q8H PRN #21 tablet 05/03/20 Unknown Rx Lidocaine [Lidoderm] 1 each TP Q12H #1 box 07/19/20 Unknown Rx Meloxicam [Mobic] 7.5 mg PO QDAY #30 tablet 07/19/20 Unknown Rx traMADoL [Ultram 50 MG tab] 50 mg PO Q6HR PRN #12 tablet 07/19/20 Unknown Rx Naproxen [Naprosyn TAB] 500 mg PO BID #20 tablet 09/30/20 Unknown Rx predniSONE [Deltasone] 40 mg PO QDAY #10 tab 09/30/20 Unknown Rx Lidocaine [Lidoderm] 1 each TP TID #20 adh..patch 10/12/20 Unknown Rx Naproxen [Naprosyn TAB] 500 mg PO BID PRN #30 tablet 10/12/20 Unknown Rx Tizanidine HCl [Zanaflex 2mg CAP] 2 mg PO TID #12 capsule 10/12/20 Unknown Rx methylPREDNISolone [Medrol 4MG 4 mg PO ONCE #1 tab.ds.pk 10/12/20 Unknown Rx DOSEPAK (21 tabs)] methOCARBAMOL [Robaxin TAB] 750 mg PO Q8H PRN #21 tablet 11/08/20 Unknown Rx traMADoL [Ultram] 50 mg PO Q6HR PRN #12 tablet 11/08/20 Unknown Rx Naproxen 500 mg PO Q12H PRN #12 tablet 03/01/21 Unknown Rx Cyclobenzaprine [Flexeril 10 MG 10 mg PO TID PRN #12 tablet 11/08/21 Unknown Rx TAB] Ibuprofen [Motrin 800 MG tab] 800 mg PO Q8HR PRN #20 tablet 11/08/21 Unknown Rx Benzonatate [Tessalon Perles] 100 mg PO Q8HR #30 capsule 11/23/21 Unknown Rx Naproxen 500 mg PO BID #20 tablet 11/23/21 Unknown Rx Cyclobenzaprine [Flexeril] 10 mg PO TID PRN 5 Days #20 tab 03/07/22 Unknown Rx Ketorolac [Toradol] 10 mg PO Q6H PRN #20 tab 03/07/22 Unknown Rx ED Physical Exam - General Limitations: No Limitations General appearance: alert - Expanded Head Exam Expanded Head exam: Present: hematoma, general tenderness - Eye Eye exam: Present: normal appearance, EOMI - ENT ENT exam: Present: mucous membranes moist, normal external ear exam - Neck Neck exam: Present: normal inspection, full ROM - Respiratory Respiratory exam: Absent: respiratory distress - Expanded Lower Extremity Exam Left Knee exam: Present: full ROM, tenderness, swelling Lower Leg exam: Present: normal inspection, full ROM. Absent: tenderness, swelling Foot/Toe exam: Present: normal inspection, full ROM Neuro vascular tendon exam: Present: no vascular compromise ED Course Vital Signs 03/18/22 03/18/22 15:55 17:26 Temperature 98.2 F 97.9 F Pulse Rate 76 80 Respiratory 19 20 Rate Blood Pressure 145/82 122/75 [Right] O2 Sat by Pulse 99 99 Oximetry ED Medical Decision Making - Radiology Data Radiology results: [place] [address] Cat Scan Report Signed Patient: JEFFERSON WRIGHT MR#: [id number] : 1965 Acct:[id number] Age/Sex: 57 / F ADM Date: 03/18/22 Loc: ED Attending Dr: Ordering Physician: CARTER YANG Date of Service: 03/18/22 Procedure(s): CT head/brain wo con Accession Number(s): [id number] cc: CARTER YANG CT head/brain wo con INDICATION: fell large hematoma. TECHNIQUE: All CT scans at this location are performed using CT dose reduction for ALARA by means of automated exposure control. COMPARISON: Head CT on 11/08/2020 FINDINGS: There is a frontal scalp hematoma. There is no intracranial hemorrhage, brain edema, or hydrocephalus. The brain appears normal for age. There is no calvarial fracture. IMPRESSION: 1. Intracranial frontal scalp hematoma without acute intracranial abnormality. Signer Name: See Addison MD Signed: 03/18/2022 4:44 PM Workstation Name: [id number] Transcribed By: MARTINA Dictated By: See Addison MD Electronically Authenticated By: See Addison MD Signed Date/Time: 03/18/221643 DD/ [address] [place] [address] Cat Scan Report Signed Patient: JEFFERSON WRIGHT MR#: [id number] : 1965 Acct:[id number] Age/Sex: 57 / F ADM Date: 03/18/22 Loc: ED Attending Dr: Ordering Physician: CARTER YANG Date of Service: 03/18/22 Procedure(s): CT cervical spine wo con Accession Number(s): [id number] cc: CARTER YANG CT CERVICAL SPINE WITHOUT CONTRAST INDICATION: fell large hematoma. TECHNIQUE: Axial CT images of the spine were obtained. Sagittal and coronal reformatted images were produced. All CT scans at this location are performed using CT dose reduction for ALARA by means of automated exposure control. COMPARISON: 11/08/2020 FINDINGS: ACUTE FRACTURE(S) OR SUBLUXATION: None. SPINAL DEGENERATIVE CHANGES: Mild degenerative disc disease at C4-5. Moderate DJD in the atlantodental articulation. PARASPINAL SOFT TISSUES: No soft tissue swelling or other acute abnormalities. ADDITIONAL FINDINGS: No significant additional findings. IMPRESSION: 1. No acute fracture or subluxation in the spine in neutral position. Signer Name: See Addison MD Signed: 03/18/2022 4:52 PM Workstation Name: [id number] Transcribed By: MARTINA Dictated By: See Addison MD Electronically Authenticated By: See Addison MD Signed Date/Time: 03/18/221651 DD/ 50 TD/TT: [address] [place] [address] XRay Report Signed Patient: JEFFERSON WRIGHT MR#: [id number] : 1965 Acct:[id number] Age/Sex: 57 / F ADM Date: 03/18/22 Loc: ED Attending Dr: Ordering Physician: CARTER YANG Date of Service: 03/18/22 Procedure(s): XR knee 3V LT Accession Number(s): [id number] cc: CARTER YANG Print Cancel - Medical Decision Making 57-year-old -[place] female presents to the emergency room stating she was at work when she slipped and fell and hit the front of her head. Patient complains of left knee pain as well. She denies any loss of consciousness no nausea no vomiting. She was able to place ice on her head that started to swell. Patient reports she has a past medical history of hypertension and Graves' disease and is compliant with all her medications. Ct head and cervical w/o contrast, left knee. Critical care attestation.: If time is entered above; I have spent that time in minutes in the direct care of this critically ill patient, excluding procedure time. ED Disposition Clinical Impression: Hematoma of scalp Qualifiers: Encounter type: initial encounter Qualified Code(s): S00.03XA - Contusion of scalp, initial encounter Knee contusion Qualifiers: Encounter type: initial encounter Laterality: left Qualified Code(s): S80.02XA - Contusion of left knee, initial encounter Fall Qualifiers: Encounter type: initial encounter Qualified Code(s): W19.XXXA - Unspecified fal l, initial encounter Disposition: 01 HOME / SELF CARE / HOMELESS Is pt being admited?: No Does the pt Need Aspirin: No Condition: Stable Instructions: Facial or Scalp Contusion, [id number] Additional Instructions: All ct and x rays are stable knee show arthritis. Ice to forehead. Ibuprofen or Tylenol for pain. Rest Referrals: Your, Primary Care Provider [Other] - 3-5 Days Forms: Work/School Release Form(ED) Time of Disposition: 17:44
--- NOTE | 2022-03-18 16:44 | XRay Report ---
Left knee, 3 views HISTORY: Fall COMPARISON: None FINDINGS: Moderate-severe tricompartmental osteoarthritis of the left knee, preferentially involving the medial compartment. No acute fracture or joint effusion. IMPRESSION: No acute osseous findings. Moderate-severe osteoarthritis. Signer Name: Barrett Davis MD Signed: 03/18/2022 4:39 PM Workstation Name: [id number]
--- NOTE | 2022-03-18 16:49 | Cat Scan Report ---
CT head/brain wo con INDICATION: fell large hematoma. TECHNIQUE: All CT scans at this location are performed using CT dose reduction for ALARA by means of automated e xposure control. COMPARISON: Head CT on 11/08/2020 FINDINGS: There is a frontal scalp hematoma. There is no intracranial hemorrhage, brain edema, or hydrocephalus . The brain appears normal for age. There is no calvarial fracture. IMPRESSION: 1. Intracranial frontal scalp hematoma without acute intracranial abnormality. Signer Name: See Addison MD Signed: 03/18/2022 4:44 PM Workstation Name: [id number]
--- NOTE | 2022-03-18 16:57 | Cat Scan Report ---
CT CERVICAL SPINE WITHOUT CONTRAST INDICATION: fell large hematoma. TECHNIQUE: Axial CT images of the spine were obtained. Sagittal and coronal reformatted images were produced. Al l CT scans at this location are performed using CT dose reduction for ALARA by means of automated exp osure control. COMPARISON: 11/08/2020 FINDINGS: ACUTE FRACTURE(S) OR SUBLUXATION: None. SPINAL DEGENERATIVE CHANGES: Mild degenerative disc disease at C4-5. Moderate DJD in the atlantodenta l articulation. PARASPINAL SOFT TISSUES: No soft tissue swelling or other acute abnormalities. ADDITIONAL FINDINGS: No significant additional findings. IMPRESSION: 1. No acute fracture or subluxation in the spine in neutral position. Signer Name: See Addison MD Signed: 03/18/2022 4:52 PM Workstation Name: [id number]
[2022-03-18 17:27] VITALS: BP 122/75
== END 2022-03-18 18:11 | disposition home or self-care (01) ==
LOC: ED 15:46
DX: S80.02XA Contusion of left knee, initial encounter (principal); S00.03XA Contusion of scalp, initial encounter; F10.20 Alcohol dependence, uncomplicated; I10 Essential (primary) hypertension; W19.XXXA Unspecified fall, initial encounter; Y93.89 Activity, other specified; Y92.89 Other specified places as the place of occurrence of the external cause; Y99.8 Other external cause status
CPT/HCPCS: 70450; 72125; 99284